=== PATIENT | female | born 1990 | race Caucasian/White ===

== ENCOUNTER 2023-03-08 12:35 | Emergency (ER) | payer MEDICAID, SELFPAY ==
[2023-03-08 12:40] VITALS: BP 159/89; PULSE 82; RESP 18; TEMP 37.1; O2SAT 98
--- NOTE | 2023-03-08 12:55 | CT_ITS ---
The [address] [address] Patient Name: MAREK PERKINS MRN: [id number] date: 1990 Sex: F Assigned Patient Location: ER Current Patient Location: ER Accession/Order Number: [id number] Exam Date: 03/08/2023 13:13 Report Date: 03/08/2023 13:36 At the request of: REGIS OCAMPO Procedure: CT head/brain wo con CT head/brain wo con: 03/08/2023 1:13 PM EDT CLINICAL HISTORY: 32 years old Female with right facial drooping. TECHNIQUE: CT head/brain wo con was performed without intravenous contrast administration. Axial CT images are obtained as well as sagittal and coronal reformations. Dose reduction techniques were achieved by using automated exposure control and/or adjustment of mA and/or kV according to patient size and/or use of iterative reconstruction technique. COMPARISON: None FINDINGS: The ventricles, gyri, sulcal patterns, and basal cisterns have a normal size and configuration for the patient's age. No intracranial hemorrhage or extra-axial fluid collection is identified. There is no evidence of focal mass or midline shift. The tong-white matter differentiation is preserved. The basal ganglia and thalami appear normal. The midbrain and cerebellum appear normal. The paranasal sinuses are normally aerated. Mastoid air cells are normally aerated. No appreciable scalp soft tissue swelling or depressed skull fractures are seen. CT/CT head/brain wo con IMPRESSION: No intracranial hemorrhage, mass effect or midline shift. Electronically authenticated by: WAYNE ALMAGUER Date: 03/08/2023 13:36
--- NOTE | 2023-03-08 12:55 | ED.NEUROSD1 ---
HPI - Neuro Symptoms/Deficit General Chief Complaint: Neuro Symptoms/Deficit Stated Complaint: NUMBNESS TO RIGHT SIDE OF FACE Time Seen by Provider: 03/08/23 12:39 Source: patient Mode of arrival: walk-in History of Present Illness HPI Narrative: patient presents with right-sided facial weakness. She notes onset of symptoms yesterday. She has not had any trauma or injury. She was told that she had a viral upper Ruster infection approximately ten days ago. She does not have any diplopia or dysarthria or dysphasia. Does not have a severe headache does not have any neck pain. She's not had any manipulation of her neck recently. She is nota weakness tingling or movement disorder of her upper or lower extremities. Her speech spank clear. She's not had a cognition defect. She is otherwise not on any new medication. Related Data Home Medications Medication Instructions Recorded Confirmed furosemide 40 mg tablet 40 mg PO DAILY 03/08/23 03/08/23 levothyroxine 112 mcg tablet 112 mcg PO 03/08/23 Allergies Allergy/AdvReac Type Severity Reaction Status Date / Time No Known Drug Allergies Allergy Verified 03/08/23 12:40 Exam Narrative Exam Narrative: awake alert vital signs are normal noted. She is oriented ?3 GCS is fifteen excellent historian. Constitutional skin is warm and dry mucous membranes are moist and pink. Examination the eye shows her extraocular muscles to be normal. There is no nystagmus. Pupillary light response is normal. Examination craniofacial structures showed no bruises contusions or injury. There is no vesicles or viral lesions noted in the facial or ocular/ear area. She has weakness to closure of the eyelid on the right side but it's not complete. She also has facial nerve weakness on the right side involving the forehead and the midface is well. Neurological examination shows motor strength in the upper and lower limbs be normal. Finger to normal finger to nose examination is normal. Speech is normal cognition normal. Constitutional Vital Signs, click to edit/add: Last Vital Signs Temp 98.7 F 03/08/23 12:40 Pulse 82 03/08/23 12:40 Resp 18 03/08/23 12:40 BP 159/89 H 03/08/23 12:40 Pulse Ox 98 03/08/23 12:40 O2 Del Method Room Air 03/08/23 12:40 Course Vital Signs Vital signs: Vital Signs Temperature 98.7 F 03/08/23 12:40 Pulse Rate 82 03/08/23 12:40 Respiratory Rate 18 03/08/23 12:40 Blood Pressure 159/89 H 03/08/23 12:40 Pulse Oximetry 98 03/08/23 12:40 Oxygen Delivery Method Room Air 03/08/23 12:40 Temperature 98.7 F 03/08/23 12:40 Pulse Rate 82 03/08/23 12:40 Respiratory Rate 18 03/08/23 12:40 Blood Pressure 159/89 H 03/08/23 12:40 Pulse Oximetry 98 03/08/23 12:40 Oxygen Delivery Method Room Air 03/08/23 12:40 MDM - Neuro Symptoms/Deficit MDM Narrative Medical decision making narrative: patient's clinical history and exam suggest Ling's palsy. CT scan was read by the radiologist as no acute process. I will start her on a steroid course. She was told to patch her eye closed at home at nighttime. She should follow up with primary care doctor to get referral and a repeat evaluation early next week Discharge Plan Discharge Chief Complaint: Neuro Symptoms/Deficit Clinical Impression: Ling's palsy Patient Disposition: Home, Self-Care Time of Disposition Decision: 13:42 Prescriptions / Home Meds: No Action levothyroxine 112 mcg tablet 112 mcg PO furosemide 40 mg tablet 40 mg PO DAILY Additional Instructions: prednisone/follow-up primary care doctor for referral early next week Stand Alone Forms: Portal Instructions Referrals: Physician,Non-Staff, MD [Primary Care Provider] - 1 week
[2023-03-08 13:54] VITALS: BP 136/87; PULSE 88; RESP 18; O2SAT 98
== END 2023-03-08 13:56 | disposition home or self-care (01) ==
PROVIDERS: Emergency Provider Emergency Medicine Emergency Medical Services
DX: G51.0 Bell's palsy (principal); Z79.899 Other long term (current) drug therapy; Z79.890 Hormone replacement therapy
CPT/HCPCS: 70450; 99284

== ENCOUNTER 2023-10-27 15:24 | Emergency (ER) | payer MEDICAID, SELFPAY ==
[2023-10-27 15:27] VITALS: BP 147/95; PULSE 76; TEMP 36.6; O2SAT 100; BMI 50.8
--- NOTE | 2023-10-27 15:40 | ED.GENADUL1 ---
HPI HPI - General Adult General Chief complaint: Skin/Abscess/Foreign Body Stated complaint: ALLERGIC REACTION Time Seen by Provider: 10/27/23 15:26 Source: patient Mode of arrival: walk-in History of Present Illness HPI narrative: Bell is a 33-year-old female who presents to the emergency department for a rash for the last week to the bilateral forearms, right leg. She states she believes she has poison blade. She has been using calamine which has improved the itching but the rash seems to have gotten worse. No fevers or other upper respiratory symptoms. No sick contacts. Related Data Home Medications ?Medication ?Instructions ?Recorded ?Confirmed furosemide 40 mg tablet 40 mg PO DAILY 03/08/23 03/08/23 levothyroxine 112 mcg tablet 112 mcg PO 03/08/23 Previous Rx's ?Medication ?Instructions ?Recorded hydroxyzine HCl 25 mg tablet 25 mg PO Q6H PRN itching #20 tabs 10/27/23 prednisone 20 mg tablet See Rx Instructions .Route 10/27/23 .COMPLEX #12 tabs Allergies Allergy/AdvReac Type Severity Reaction Status Date / Time No Known Drug Allergies Allergy Verified 03/08/23 12:40 Opioid HPI Opioid Management Most Recent Opioid Data: No Data to Display Review of Systems ROS Constitutional Denies: fever or chills Ears, nose, mouth, and throat Denies: throat pain or nasal congestion Respiratory Denies: shortness of breath Gastrointestinal Denies: nausea or vomiting Integumentary/Breast Reports: rash and itching Hematologic/Lymphatic Denies: easy bruising or easy bleeding Allergic/Immunologic Denies: hives Exam Narrative Exam Narrative: Gen.: Awake, alert, in no distress Head: Normocephalic, atraumatic ENT: Moist mucous membranes Respiratory: No respiratory distress Extremities: Moves extremities equally Psych: Normal mood and affect Neuro: No focal neuro deficit Skin: Warm, dry, intact; Erythematous linear vesicular rash over the bilateral volar forearms with fluid-filled vesicles, occasional crusting. Minimal rash to the right lateral thigh. No petechia or purpura. No pustules, red streaking or evidence of secondary cellulitis. No extension of the rash to the mucous membranes, palms of the hands. Constitutional Vital Signs, click to edit/add: Last Vital Signs Temp 97.9 F 06/02/24 15:27 Pulse 76 10/27/23 15:27 Resp 16 10/27/23 15:27 BP 147/95 H 10/27/23 15:27 Pulse Ox 100 10/27/23 15:27 O2 Del Method Room Air 10/27/23 15:27 Course Vital Signs Vital signs: Vital Signs Temperature 97.9 F 10/27/23 15:27 Pulse Rate 76 10/27/23 15:27 Respiratory Rate 16 10/27/23 15:27 Blood Pressure 147/95 H 10/27/23 15:27 Pulse Oximetry 100 10/27/23 15:27 Oxygen Delivery Method Room Air 10/27/23 15:27 Temperature 97.9 F 10/27/23 15:27 Pulse Rate 76 10/27/23 15:27 Respiratory Rate 16 10/27/23 15:27 Blood Pressure 147/95 H 10/27/23 15:27 Pulse Oximetry 100 10/27/23 15:27 Oxygen Delivery Method Room Air 10/27/23 15:27 Medical Decision Making MDM Narrative Medical decision making narrative: Exam is consistent with contact dermatitis. Patient placed on a prednisone taper and Atarax for itching. Work note provided. Follow-up PCP and return to the ER if symptoms change or worsen Medical Records Medical records reviewed: Yes I reviewed the patient's medical records Discharge Plan Discharge Stand Alone Forms: Portal Instructions Chief Complaint: Skin/Abscess/Foreign Body Clinical Impression: Contact dermatitis Patient Disposition: Home, Self-Care Time of Disposition Decision: 15:38 Condition: Good Prescriptions / Home Meds: New prednisone 20 mg tablet See Rx Instructions .ROUTE .COMPLEX Qty: 12 0RF Rx Instructions: 3 tabs daily for 2 days, then 2 tabs daily for 2 days, then 1 tab daily for 2 days hydroxyzine HCl 25 mg tablet 25 mg PO Q6H PRN (Reason: itching) Qty: 20 0RF No Action levothyroxine 112 mcg tablet 112 mcg PO furosemide 40 mg tablet 40 mg PO DAILY Print Language: Greenlandic Instructions: Contact Dermatitis (ED) Referrals: Physician,Non-Staff, MD [Primary Care Provider] - 1 week
== END 2023-10-27 16:00 | disposition home or self-care (01) ==
PROVIDERS: Emergency Provider Emergency Medicine
DX: L25.9 Unspecified contact dermatitis, unspecified cause (principal)
CPT/HCPCS: 99283

== ENCOUNTER 2024-02-10 17:18 | Emergency (ER) | payer MEDICAID, SELFPAY ==
[2024-02-10 17:26] VITALS: BP 121/72; PULSE 78; TEMP 36.9; O2SAT 99; BMI 55.6
--- NOTE | 2024-02-10 17:35 | XR_ITS ---
The [address] [address] Patient Name: MAREK PERKINS MRN: [id number] date: 1990 Sex: F Assigned Patient Location: ER Current Patient Location: ER Accession/Order Number: [id number] Exam Date: 02/10/2024 18:34 Report Date: 02/10/2024 19:56 At the request of: KIMBERLY BOYLE Procedure: XR knee LT 4V EXAM: XR knee LT 4V , 02/10/2024 HISTORY: left knee pain COMPARISON: None. TECHNIQUE: X-rays of the left knee, 4 views. FINDINGS: Mild degenerative changes are seen in the left knee. Mild soft tissue swelling. No fracture or dislocation. The bones are well-mineralized. XR/XR knee LT 4V IMPRESSION: Mild degenerative changes left knee. Electronically authenticated by: SUZANNE CATHERINE Date: 02/10/2024 19:56
--- NOTE | 2024-02-10 17:36 | ED.LOWEXI1 ---
HPI HPI - Extremity Injury (Lower) General Chief Complaint: Extremity Injury, Lower Stated Complaint: Extremity Injury, Lower Time Seen by Provider: 02/10/24 17:34 Source: patient Mode of arrival: walk-in Limitations: no limitations History of Present Illness HPI Narrative: Patient is a 33-year-old female who presents to the emergency department for the evaluation of left knee pain. She states she has a history of knee pain from riding horses over the past few years, but she has never had pain like this. She reports most of her pain in the anterior and lateral left knee. No falls or injuries. She states she feels as though there is fluid in her knee. No medications taken prior to arrival. She is not anticoagulated, she has no history of diabetes, she has never seen an orthopedist, she has no concern for . Related Data Home Medications ?Medication ?Instructions ?Recorded ?Confirmed furosemide 40 mg tablet 40 mg PO DAILY 03/08/23 03/08/23 levothyroxine 112 mcg tablet 112 mcg PO 03/08/23 Previous Rx's ?Medication ?Instructions ?Recorded hydroxyzine HCl 25 mg tablet 25 mg PO Q6H PRN itching #20 tabs 10/27/23 prednisone 20 mg tablet See Rx Instructions .Route 10/27/23 .COMPLEX #12 tabs ketorolac 10 mg tablet 10 mg PO TID PRN pain #10 tabs 02/10/24 methocarbamol 750 mg tablet 750 mg PO TID PRN pain #20 tabs 02/10/24 prednisone 20 mg tablet 60 mg (3 x 20 mg) PO DAILY 3 days 02/10/24 #9 tabs Allergies Allergy/AdvReac Type Severity Reaction Status Date / Time No Known Drug Allergies Allergy Verified 02/10/24 17:26 Opioid HPI Opioid Management Most Recent Pain and Opioid Data: No Data to Display Review of Systems ROS Constitutional Denies: fever or chills Ears, nose, mouth, and throat Denies: throat pain or nasal congestion Respiratory Denies: shortness of breath Gastrointestinal Denies: nausea or vomiting Musculoskeletal Reports: extremity pain, extremity swelling, joint pain and limited range of motion; Denies: back pain or neck pain Neurological Denies: numbness in extremities or weakness in extremities Hematologic/Lymphatic Denies: easy bruising or easy bleeding PFSH PFSH Social History Little interest or pleasure in doing things: not at all Feeling down, depressed, or hopeless: not at all Exam Narrative Exam Narrative: Gen.: Awake, alert, in no distress Head: Normocephalic, atraumatic ENT: Moist mucous membranes Respiratory: No respiratory distress Extremities: Moves extremities equally, no laxity of the patella, no palpable joint effusion, no bony point tenderness of the anterior knee. No posterior knee or calf tenderness. Normal dorsiflexion plantarflexion of the left foot. Psych: Normal mood and affect Neuro: No focal neuro deficit Skin: Warm, dry, intact Constitutional Vital Signs, click to edit/add: Last Vital Signs Temp 98.5 F 02/10/24 17:26 Pulse 78 02/10/24 17:26 Resp 20 02/10/24 17:26 BP 121/72 02/10/24 17:26 Pulse Ox 99 02/10/24 17:26 O2 Del Method Room Air 02/10/24 17:26 Course Vital Signs Vital signs: Vital Signs Temperature 98.5 F 02/10/24 17:26 Pulse Rate 78 02/10/24 17:26 Respiratory Rate 20 02/10/24 17:26 Blood Pressure 121/72 02/10/24 17:26 Pulse Oximetry 99 02/10/24 17:26 Oxygen Delivery Method Room Air 02/10/24 17:26 Temperature 98.5 F 02/10/24 17:26 Pulse Rate 78 02/10/24 17:26 Respiratory Rate 20 02/10/24 17:26 Blood Pressure 121/72 02/10/24 17:26 Pulse Oximetry 99 02/10/24 17:26 Oxygen Delivery Method Room Air 02/10/24 17:26 MDM - Extremity Injury (Lower) MDM Narrative Medical decision making narrative: X-rays reviewed by the radiologist, mild degenerative changes with no acute process. Patient placed in an Rafiq wrap and remains neurovascularly intact. She is started on NSAIDs and a steroid taper with muscle relaxant for home. She was given an orthopedic appointment. Rest, ice, elevate. Return to the ER if symptoms change or worsen. SUPERVISED APC VISIT, PHYSICIAN ATTESTATION: Based on the medical record the care appears appropriate. ? Medical Records Attestation: I reviewed the patient's medical records. Imaging Data Xr knee: Attestation: I have reviewed the pertinent imaging results. Radiologist's impression: ITS Impressions Knee X-Ray 02/10/24 17:35 IMPRESSION: Mild degenerative changes left knee. Electronically authenticated by: SUZANNE CATHERINE Date: 02/10/2024 19:56 Discharge Plan Discharge Chief Complaint: Extremity Injury, Lower Clinical Impression: Left knee pain Patient Disposition: Home, Self-Care Time of Disposition Decision: 20:01 Condition: Good Mode of Transportation: Private Vehicle Prescriptions / Home Meds: New prednisone 20 mg tablet 60 mg PO DAILY 3 Days Qty: 9 0RF ketorolac 10 mg tablet 10 mg PO TID PRN (Reason: pain) Qty: 10 0RF methocarbamol 750 mg tablet 750 mg PO TID PRN (Reason: pain) Qty: 20 0RF No Action levothyroxine 112 mcg tablet 112 mcg PO furosemide 40 mg tablet 40 mg PO DAILY prednisone 20 mg tablet See Rx Instructions .ROUTE .COMPLEX Qty: 12 0RF Rx Instructions: 3 tabs daily for 2 days, then 2 tabs daily for 2 days, then 1 tab daily for 2 days hydroxyzine HCl 25 mg tablet 25 mg PO Q6H PRN (Reason: itching) Qty: 20 0RF Print Language: [place] Island[place] Instructions: Knee Pain (ED) Referrals: [facility] [Primary Care Provider] - 1 week Emery Talavera MD [Physician] - 02/17/24 11:30 am Discharge Date/Time: 02/10/24 20:08
[2024-02-10] MEDS: METHYLPREDNISOLONE SOD SUCC PF 125 MG/2 ML VIAL IM (18:56)
[2024-02-10] MEDS: KETOROLAC TROMETHAMINE 60 MG/2 ML VIAL IM (18:57)
[2024-02-10 20:08] VITALS: BP 125/75; PULSE 70; O2SAT 99
== END 2024-02-10 20:08 | disposition home or self-care (01) ==
PROVIDERS: Emergency Provider Emergency Medicine
DX: M25.562 Pain in left knee (principal)
CPT/HCPCS: 73564; 96372; 99284; J1885; J2919

== ENCOUNTER 2024-08-02 00:22 | Emergency (ER) | payer MEDICAID, SELFPAY ==
[2024-08-02 00:27] VITALS: BP 152/94; PULSE 100; TEMP 37.5; O2SAT 94; BMI 53.3
--- OUTSIDE RECORDS SUMMARY | 2024-08-02 00:33 | XMS_ITS | CCD ---
Author Organization [facility] Care Team Providers Care Incident Response Lead Name Role Phone Unavailable Primary Care Provider UnavailFARA Salgado Attending Unavailable Kecia Oliver Unavailable LEON, DR CRESCENCIO Hernandez Primary Care Unavailable DONNA CRAFT Admitting Unavailable DONNA CRAFT Attending Unavailable JAMMIE BOYLE Consulting Unavailable BRUNA CAMPBELL Consulting Unavailable RAUL SHARIF Consulting Unavailable LEON, DR CRESCENCIO Hernandez Admitting Unavailable LEON, DR CRESCENCIO Hernandez Attending Unavailable LEON, DR CRESCENCIO Hernandez Primary Care Unavailable LEON, DR CRESCENCIO Hernandez Admitting Unavailable LEON, DR CRESCENCIO Hernandez Attending Unavailable LEON, DR CRESCENCIO Hernandez Primary Care Unavailable LEON, DR CRESCENCIO Hernandez Consulting Unavailable Medications Current Medications Medication Drug Class(es) Dates Sig (Normalized) Sig (Original) cephalexin 500 mg oral capsule (3 sources) Cephalosporin Antibacterial Start: 10-30-2021 End: 11-09-2021 take 1 capsule by mouth three times daily cephALEXin (KEFLEX) 500 MG capsule Take 1 capsule by mouth 3 times daily for 10 days 30 capsule 0 10/30/2021 11/09/2021 Active Cephalexin Activ e Furosemide (3 sources) Loop Diuretic Lasix Active take 1 tablet by mouth once thania y furosemide (LASIX) 40 MG tablet Take 40 mg by mouth daily 0 Active levothyroxine (3 sources) l-Thyroxine Levothyroxine So dium Active take 1 tablet by mouth once thania y levothyroxine (SYNTHROID) 112 MCG tablet Take 112 mcg by mouth Daily 0 Active naproxen 250 mg oral tablet (1 source) Nonsteroidal Anti-inflammatory Drug take 1 tablet by mouth twice daily at mealtime naproxen (NAPROSYN) 250 MG tablet Take 250 mg by mouth 2 times daily (with meals) 0 Active sulfamethoxazole 800 mg / trimethoprim 160 mg oral tablet (3 sources) Dihydrofolate Reductase Inhibitor Antibacterial, Sulfonamide Antimicrobial Start: End: take 1 tablet by mouth twice daily sulfamethoxazole -trimethoprim (BACTRIM DS) 800-160 MG per tablet Take 1 tablet by mouth 2 times daily for 10 days 20 tablet 0 10/30/2021 11/09/2021 Active Start: 10-30-2021 End: 10-30-2021 sulfamethoxazole-trimethopri m (BACTRIM DS;SEPTRA DS) 800-160 MG per tablet 1 tablet Bactrim Active Tri-Sprintec (1 source) Tri-Sprintec Act pippa Problems Active Problems Problem Classification Problem Date Documented Da te Episodic/Chronic Other nutritional; endocrine; and metabolic disorders (1 source) Obesity, unspecified; Translations: [OBESITY UNSPECIFIED] Onset: 02-21-2022 Chronic Other nutritional; endocrine; and metabolic disorders (1 source) Body mass index (BMI) 50.0-59.9, adult; Translations: [BODY MASS INDEX BMI 50.0-59.9 ADULT] Onset: 02-21-2022 Chronic Residual codes; unclassified (4 sources) Obstructive sleep apnea (adult) (pediatric); Translations: [OBSTRUCTIVE SLEEP APNEA] Onset: 09-13-2021 Chronic Unclassified (1 source) CONTACT W/AND (SUSP) EXPOS COVID-19; Translations: [CONTACT W/AND (SUSP) EXPOS COVID-19] Onset: 02-21-2022 Past or Other Problems Problem Classification Problem Date Documented Da te Episodic/Chronic Abdominal pain (4 sources) Unspecified abdominal pain; Translations: [UNSPECIFIED ABDOMINAL PAIN] Onset: 02-18-2022 Episodic Appendicitis and other appendiceal conditions (1 source) Unspecified acute appendicitis; Translations: [UNSPECIFIED ACUTE APPENDICITIS] Onset: 02-21-2022 Episodic Other connective tissue disease (1 source) Lateral epicondylitis, right elbow Onset: 01-25-2022 Resolved: 01-25-2022 Episodic Skin and subcutaneous tissue infections (2 sources) Cellulitis; Translations: [Cellulitis, unspecified] Onset: 11-01-2021 Resolved: 11-01-2021 Episodic Results Test Name Value Interpretation Reference Range Facility CBC AUTO DIFFon 06-09-2022 BASO # 0.0 103/ul Normal 0.0-0.1 [facility] Comment on above: Performed By: #### C BC ####[facility] [address] [place] [id number]. Nathalie Marroquin Basophils/100 WBC (Bld) 0.4 % Normal 0.2-2.0 [facility] Comment on above: Performed By: #### C BC ####[facility] [address] [place] [id number]. Nathalie Marroquin EO # 0.1 103/ul Normal 0.0-0.7 [facility] Comment on above: Performed By: #### C BC ####[facility] [address] [place] [id number]. Nathalie Marroquin Eosinophils/100 WBC (Bld) 1.9 % Normal 0.9-7.0 [facility] Comment on above: Performed By: #### C BC ####[facility] [address] [place], [place] [address]Dr. Nathalie Marroquin Erythrocyte distribution width (RBC) [Ratio] 14.2 % Normal 11.0-15.0 [facility] Comment on above: Performed By: #### C BC ####[facility] [address] [place], [place] [id number]. Nathalie Marroquin Hematocrit (Bld) [Volume fraction] 38.2 % Normal 36.0-48.0 [facility] Comment on above: Performed By: #### C BC ####[facility] [address] [place], [place] [id number]. Nathalie Marroquin Hemoglobin (Bld) [Mass/Vol] 13.2 g/dL Normal 12.0-16.0 [facility] Comment on above: Performed By: #### C BC ####[facility] [address] [place], [place] [id number]. Nathalie Marroquin IG # 0.02 10e3/ul Normal 0.00-0.03 [facility] Comment on above: Performed By: #### C BC ####[facility] [address] [place], [place] [address]Dr. Nathalie Marroquin IG % 0.4 % Normal 0.0-0.5 [facility] Comment on above: Performed By: #### C BC ####[facility] [address] [place] [id number]. Nathalie Marroquin LYMPH # 1.2 103/ul Normal 1.2-3.8 [facility] Comment on above: Performed By: #### C BC ####[facility] [address] [place] [id number]. Nathalie Marroquin Lymphocytes/100 WBC (Bld) 25.4 % Normal 20.5-60.0 [facility] Comment on above: Performed By: #### C BC ####[facility] [address] [place] [id number]. Nathalie Marroquin MANUAL DIFF REQ NO Normal [facility] Comment on above: Performed By: #### C BC ####[facility] [address] [place] [id number]. Nathalie Marroquin MCH (RBC) [Entitic mass] 30.1 pg Normal 26.7-34.0 [facility] Comment on above: Performed By: #### C BC ####[facility] [address] [place] [id number]. Nathalie Marroquin MCHC (RBC) [Mass/Vol] 34.6 g/dL Normal 29.9-35.2 [facility] Comment on above: Performed By: #### C BC ####[facility] [address] [place] [id number]. Nathalie Marroquin MCV (RBC) [Entitic vol] 87.2 fL Normal 81.0-99.0 [facility] Comment on above: Performed By: #### C BC ####[facility] [address] [place] [id number]. Nathalie Marroquin MONO # 0.3 103/ul Normal 0.3-0.8 [facility] Comment on above: Performed By: #### C BC ####[facility] [address] [place] [id number]. Nathalie Marroquin Monocytes/100 WBC (Bld) 5.8 % Normal 1.7-12.0 [facility] Comment on above: Performed By: #### C BC ####[facility] [address] [place] [id number]. Nathalie Marroquin NEUT # 3.2 103/ul Normal 1.4-6.5 [facility] Comment on above: Performed By: #### C BC ####[facility] [address] [place] [id number]. Nathalie Marroquin Neutrophils/100 WBC (Bld) 66.1 % Normal 43.0-75.0 [facility] Comment on above: Performed By: #### C BC ####[facility] [address] [place] [id number]. Nathalie Marroquin Platelet mean volume (Bld) [Entitic vol] 9.1 fL Critically low 9.5-13.5 [facility] Comment on above: Performed By: #### C BC ####[facility] [address] [place] [address]Dr. Nathalie Marroquin PLT 276 103/ul Normal 150-450 [facility] Comment on above: Performed By: #### C BC ####[facility] [address] [place], [place] [id number]. Nathalie Marroquin RBC 4.38 106/ul Normal 4.20-5.40 [facility] Comment on above: Performed By: #### C BC ####[facility] [address] [place] [id number]. Nathalie Marroquin WBC 4.9 103/ul Normal 4.0-11.0 [facility] Comment on above: Performed By: #### C BC ####[facility] [address] [place] [id number]. Nathalie Marroquin FREE T3on 06-09-2022 FREE T3 2.01 pg/mlL Critically low 2.18-3.98 [facility] Comment on above: Performed By: #### F T3, TSH, LIPID, BMP, LIVER ####[facility] [address] [place] [id number]. Nathalie Marroquin FREE T4on 06-09-2022 Free T4 [Mass/Vol] 0.66 ng/dL Critically low 0.76-1.46 [facility] Comment on above: Performed By: #### F T4 #### [facility] [id number] Nathalie Marroquin GLYCOHEMOGLOBIN A1Con 2022 ADA RECOMMENDATION SEE BELOW Normal [facility] Comment on above: Result Comment: ADA RECOMMENDED LIMIT 4.0 - 6.0 ADA THERAPEUTIC TARGET < 7.0 ACTION SUGGESTED > 7.0 Performed By: #### A 1C #### [facility] [address] [address] [address] Nathalie Marroquin Glucose [Mass/Vol] 171 mg/dL Normal [facility] Comment on above: Performed By: #### A 1C #### [facility] [address] [address] [address] Nathalie Marroquin HbA1c (Bld) [Mass fraction] 7.6 % Critically high 4.5-6.2 [facility] Comment on above: Performed By: #### A 1C #### [facility] [id number] Nathalie Marroquin LIPID PROFILEon 06-09-2022 CHOL-HDL RATIO NORM SEE BELOW Normal [facility] Comment on above: Result Comment: 3.3 - 4.4 LOW RISK 4.4 - 7.1 AVERAGE RISK 7.1 - 11.0 MODERATE RISK >11.0 HIGH RISK Performed By: #### F T3, TSH, LIPID, BMP, LIVER ####[facility] [address] [place], [place] [address]Dr. Nathalie Marroquin Cholesterol [Mass/Vol] 163 mg/dL Normal <=200 [facility] Comment on above: Performed By: #### F T3, TSH, LIPID, BMP, LIVER ####[facility] [address] [place] [id number]. Nathalie Marroquin Cholesterol in HDL [Mass/Vol] 42 mg/dL Normal 40-60 [facility] Comment on above: Performed By: #### F T3, TSH, LIPID, BMP, LIVER ####[facility] [address] [place] [phone]. Nathalie Marroquin Cholesterol in LDL [Mass/Vol] 98.2 mg/dL Normal [facility] Comment on above: Performed By: #### F T3, TSH, LIPID, BMP, LIVER ####[facility] [address] [place] [address]Dr. Nathalie Marroquin Cholesterol.total/Cho lesterol in HDL [Mass ratio] 3.9 {ratio} Normal [facility] Comment on above: Performed By: #### F T3, TSH, LIPID, BMP, LIVER ####[facility] [address] [place] [address]Dr. Nathalie Marroquin HDL NORMAL > or = 60 mg/dl - LO W CARDIOVASCULAR RISK <40 mg/dl - HIGH CARDIOVASCULAR RISK Normal [facility] Comment on above: Performed By: #### F T3, TSH, LIPID, BMP, LIVER ####[facility] [address] [place] [address]Dr. Nathalie Marroquin LDL CALC NORMAL SEE BELOW Normal [facility] Comment on above: Result Comment: <100 mg/dl OPTIMAL 100 - 129 mg/dl NEAR OR ABOVE OPTIMAL 130 - 159 mg/dl BORDERLINE HIGH 160 - 189 mg/dl HIGH >190 mg/dl VERY HIGH Performed By: #### F T3, TSH, LIPID, BMP, LIVER ####[facility] [address] [place] [address]Dr. Nathalie Marroquin Triglyceride [Mass/Vol] 114 mg/dL Normal <=150 [facility] Comment on above: Performed By: #### F T3, TSH, LIPID, BMP, LIVER ####[facility] [address] [place] [id number]. Nathalie Marroquin VLDL CALC 22.8 mg/dL Normal [facility] Comment on above: Performed By: #### F T3, TSH, LIPID, BMP, LIVER ####[facility] [address] [place] [address]Dr. Britnibrett Marroquin LIVER PROFILEon 06-09-2022 Albumin [Mass/Vol] 3.3 g/dL Critically low 3.4-5.0 [facility] Comment on above: Performed By: #### F T3, TSH, LIPID, BMP, LIVER ####[facility] [address] [place] [address]Dr. Nathalie Marroquin Albumin/Globulin [Mass ratio] 0.7 {ratio} Normal [facility] Comment on above: Performed By: #### F T3, TSH, LIPID, BMP, LIVER ####[facility] [address] [place] [address]Dr. Nathalie Marroquin ALP [Catalytic activity/Vol] 113 U/L Normal 46-116 [facility] Comment on above: Performed By: #### F T3, TSH, LIPID, BMP, LIVER ####[facility] [address] [place], [place] [address]Dr. Britnibrett Marroquin ALT [Catalytic activity/Vol] 45 U/L Normal 14-59 [facility] Comment on above: Performed By: #### F T3, TSH, LIPID, BMP, LIVER ####[facility] [address] [place], [place] [address]Dr. Nathalie Marroquin AST [Catalytic activity/Vol] 26 U/L Normal 15-37 [facility] Comment on above: Performed By: #### F T3, TSH, LIPID, BMP, LIVER ####[facility] [address] [place], [place] [address]Dr. Nathalie Marroquin BILI, CONJUGATED 0.1 mg/dL Normal 0.0-0.2 [facility] Comment on above: Performed By: #### F T3, TSH, LIPID, BMP, LIVER ####[facility] [address] [place], [place] [address]Dr. Nathalie Marroquin Bilirubin [Mass/Vol] 0.4 mg/dL Normal 0.2-1.0 [facility] Comment on above: Performed By: #### F T3, TSH, LIPID, BMP, LIVER ####[facility] [address] [place], [place] [address]Dr. Nathalie Marroquin Globulin (S) [Mass/Vol] 4.8 g/dL Normal [facility] Comment on above: Performed By: #### F T3, TSH, LIPID, BMP, LIVER ####[facility] [address] [place], [place] [address]Dr. Nathalie Marroquin Protein [Mass/Vol] 8.1 g/dL Normal 6.4-8.2 [facility] Comment on above: Performed By: #### F T3, TSH, LIPID, BMP, LIVER ####[facility] [address] [place] [address]Dr. Nathalie Marrqouin PROF CHEM 8 (BAS METB)on Anion gap [Moles/Vol] 9.7 mmol/L Normal [facility] Comment on above: Performed By: #### F T3, TSH, LIPID, BMP, LIVER ####[facility] [address] [place] [address]Dr. Nathalie Marroquin Calcium [Mass/Vol] 8.5 mg/dL Normal 8.5-10.1 [facility] Comment on above: Performed By: #### F T3, TSH, LIPID, BMP, LIVER ####[facility] [address] [place] [address]Dr. Britnibrett Marroquin Chloride [Moles/Vol] 101 mmol/L Normal 98-107 [facility] Comment on above: Performed By: #### F T3, TSH, LIPID, BMP, LIVER ####[facility] [address] [place] [address]Dr. Nathalie Marroquin CO2 [Moles/Vol] 30.2 mmol/L Normal 21.0-32.0 [facility] Comment on above: Performed By: #### F T3, TSH, LIPID, BMP, LIVER ####[facility] [address] [place] [address]Dr. Nathalie Marroquin Creatinine [Mass/Vol] 0.82 mg/dL Normal 0.55-1.02 [facility] Comment on above: Performed By: #### F T3, TSH, LIPID, BMP, LIVER ####[facility] [address] [place] [address]Dr. Nathalie Lopez EGFR-AF LITHUANIAN >60 Normal >=60 [facility] Comment on above: Performed By: #### F T3, TSH, LIPID, BMP, LIVER ####[facility] [address] [place] [address]Dr. Nathalie Marroquin EGFR-NON AF LITHUANIAN >60 Normal >=60 [facility] Comment on above: Performed By: #### F T3, TSH, LIPID, BMP, LIVER ####[facility] [address] [place] [address]Dr. Nathalie Marroquin Glucose [Mass/Vol] 151 mg/dL Critically high 74-106 T [facility] Comment on above: Performed By: #### F T3, TSH, LIPID, BMP, LIVER ####[facility] [address] [place] [address]Dr. Nathalie Marroquin Potassium [Moles/Vol] 3.9 mmol/L Normal 3.5-5.1 [facility] Comment on above: Performed By: #### F T3, TSH, LIPID, BMP, LIVER ####[facility] [address] [place] [address]Dr. Nathalie Marroquin Sodium [Moles/Vol] 137 mmol/L Normal 136-145 [facility] Comment on above: Performed By: #### F T3, TSH, LIPID, BMP, LIVER ####[facility] [address] [place] [address]Dr. Nathalie Marroquin Urea nitrogen [Mass/Vol] 17.0 mg/dL Normal 7.0-18.0 [facility] Comment on above: Performed By: #### F T3, TSH, LIPID, BMP, LIVER ####[facility] [address] [place] [address]Dr. Nathalie Marroquin Urea nitrogen/Creatinine [Mass ratio] 20.7 mg/mg Normal [facility] Comment on above: Performed By: #### F T3, TSH, LIPID, BMP, LIVER ####[facility] [address] [place] [address]Dr. Nathalie Marroquin TSHon 06-09-2022 TSH 8.979 uIU/mL Critically high 0.358-3.740 [facility] Comment on above: Performed By: #### F T3, TSH, LIPID, BMP, LIVER ####[facility] [address] [place] [address]Dr. Nathalie Marroquin CBC AUTO DIFFon 02-18-2022 BASO # 0.0 103/ul Normal 0.0-0.1 [facility] Comment on above: Performed By: #### C BC #### [facility] [address] [address] [address] Nathalie Marroquin Basophils/100 WBC (Bld) 0.3 % Normal 0.2-2.0 [facility] Comment on above: Performed By: #### C BC #### [facility] [address] [address] [address] Nathalie Marroquin EO # 0.2 103/ul Normal 0.0-0.7 [facility] Comment on above: Performed By: #### C BC #### [facility] [address] [place] [address] Dr. Nathalie Marroquin Eosinophils/100 WBC (Bld) 2.3 % Normal 0.9-7.0 [facility] Comment on above: Performed By: #### C BC #### [facility] [address] [place] [address] Dr. Nathalie Marroquin Erythrocyte distribution width (RBC) [Ratio] 14.6 % Normal 11.0-15.0 [facility] Comment on above: Performed By: #### C BC #### [facility] [address] [place] [address] Dr. Nathalie Marroquin Hematocrit (Bld) [Volume fraction] 38.8 % Normal 36.0-48.0 [facility] Comment on above: Performed By: #### C BC #### [facility] [address] [place] [address] Dr. Nathalie Marroquin Hemoglobin (Bld) [Mass/Vol] 12.7 g/dL Normal 12.0-16.0 [facility] Comment on above: Performed By: #### C BC #### [facility] [address] [place] [address] Dr. Nathalie Marroquin IG # 0.04 10e3/ul Critically high 0.00-0.03 [facility] Comment on above: Performed By: #### C BC #### [facility] [address] [place] [address] Dr. Nathalie Marroquin IG % 0.5 % Normal 0.0-0.5 [facility] Comment on above: Performed By: #### C BC #### [facility] [address] [place] [address] Dr. Nathalie Marroquin LYMPH # 1.9 103/ul Normal 1.2-3.8 [facility] Comment on above: Performed By: #### C BC #### [facility] [address] [place] [address] Dr. Nathalie Marroquin Lymphocytes/100 WBC (Bld) 23.9 % Normal 20.5-60.0 [facility] Comment on above: Performed By: #### C BC #### [facility] [address] [place] [address] Dr. Nathalie Marroquin MANUAL DIFF REQ NO Normal [facility] Comment on above: Performed By: #### C BC #### [facility] [address] [place] [address] Dr. Nathalie Marroquin MCH (RBC) [Entitic mass] 29.6 pg Normal 26.7-34.0 [facility] Comment on above: Performed By: #### C BC #### [facility] [address] [place] [address] Dr. Nathalie Marroquin MCHC (RBC) [Mass/Vol] 32.7 g/dL Normal 29.9-35.2 [facility] Comment on above: Performed By: #### C BC #### [facility] [address] [place] [address] Dr. Nathalie Marroquin MCV (RBC) [Entitic vol] 90.4 fL Normal 81.0-99.0 [facility] Comment on above: Performed By: #### C BC #### [facility] [address] [place] [address] Dr. Nathalie Marroquin MONO # 0.5 103/ul Normal 0.3-0.8 [facility] Comment on above: Performed By: #### C BC #### [facility] [address] [place] [address] Dr. Nathalie Marroquin Monocytes/100 WBC (Bld) 6.5 % Normal 1.7-12.0 [facility] Comment on above: Performed By: #### C BC #### [facility] [address] [place] [address] Dr. Nahtalie Marroquin NEUT # 5.3 103/ul Normal 1.4-6.5 [facility] Comment on above: Performed By: #### C BC #### [facility] [address] [place] [address] Dr. Nathalie Marroquin Neutrophils/100 WBC (Bld) 66.5 % Normal 43.0-75.0 [facility] Comment on above: Performed By: #### C BC #### [facility] [address] [place] [address] Dr. Nathalie Marroquin Platelet mean volume (Bld) [Entitic vol] 9.5 fL Normal 9.5-13.5 [facility] Comment on above: Performed By: #### C BC #### [facility] [address] [place] [address] Dr. Nathalie Marroquin PLT 287 103/ul Normal 150-450 [facility] Comment on above: Performed By: #### C BC #### [facility] [address] [place] [address] Dr. Nathalie Marroquin RBC 4.29 106/ul Normal 4.20-5.40 [facility] Comment on above: Performed By: #### C BC #### [facility] [address] [place] [address] Dr. Nathalie Marroquin WBC 7.9 103/ul Normal 4.0-11.0 [facility] Comment on above: Performed By: #### C BC #### [facility] [address] [place] [address] ABD/PELV W CONon 02-19-[address] ABD/PELV W CON CT ABDOMEN/PELVIS WITH IV CONTRAST. INDICATION: GENERALIZED ABDOMINAL PAIN. COMPARISON: There are no other studies available for comparison. TECHNIQUE: Contiguous axial images were obtained from the lung bases to the pelvic floor following the intravenous administration of contrast. Coronal and sagittal reformations are provided. Approximately ML ml Omnipaque 350 was administered intravenously. FINDINGS: LOWER LUNGS: Clear. LIVER/BILIARY TREE: No mass. No intrahepatic ductal dilatation. Hepatic steatosis. Hepatomegaly. GALLBLADDER: No significant gallbladder wall thickening. No radiopaque stone. CBD: Normal CBD. SPLEEN: Normal in size. PANCREAS: No acute findings. No peripancreatic fluid or inflammation. No pancreatic duct dilatation. No discrete mass. ADRENALS: Normal. KIDNEYS: No hydronephrosis. No radiopaque calculus. STOMACH AND BOWEL: Stomach is unremarkable. No dilated bowel loops. No bowel wall thickening. Colonic diverticulosis. APPENDIX: The appendix measures up to 8 mm. There is mild periappendiceal stranding. No evidence of perforation or abscess. PERITONEAL CAVITY: There is mild stranding in minimal fluid in the right lower quadrant adjacent to the appendix.. ABDOMINAL WALL: No subcutaneous stranding. No subcutaneous fluid collection. LYMPH NODES: No mesenteric or retroperitoneal lymphadenopathy by CT criteria. ABDOMINAL AORTA: No aneurysm. PELVIS: No acute abnormality. MUSCULOSKELETAL: No acute osseous abnormality. IMPRESSION: Borderline thickened appendix with mild periappendiceal stranding and small amount of free fluid suspicious for acute uncomplicated appendicitis. Correlate clinically. Electronically authenticated by: RAUL SHARIF Date: 2022-02-18 20:02 Normal [facility]26 SARS-CoV-2 (COVID-19) RNA SANYA+probe Ql (Unsp spec) Not detected Normal NOT DETECTED [facility] Comment on above: Result Comment: When diagnostic testing is negative, the possibility of a false negative should be considered in the context of a patient's recent exposures and the presence of clinical signs and symptoms consistent with SARS-CoV-2. This test is not yet approved or cleared by the [place] FDA. When there are no FDA-approved or cleared tests available, and other criteria are met, FDA can make tests available under an emergency access mechanism called an Emergency Use Authorization (EUA). The EUA for this test is supported by the Jud of Health and Human Service's declaration that circumstances exist to justify the emergency use of in vitro diagnostics for the detection and/or diagnosis of the virus that causes COVID-19. This EUA will remain in effect for the duration of the COVID-19 declaration justifying emergency of IVDs, unless it is terminated or revoked by the FDA (after which the test may no longer be used). Performed By: #### C VDTBH #### [facility] [address] [address] [address] Nathalie Marroquin ER URINE PROFILEon 2 Bilirubin Ql (U) Negative Normal NEGATIVE [facility] Comment on above: Performed By: #### P REGU, UMICRO, ERUR #### [facility] [address] [address] [address] Natahlie Marroquin Clarity (U) CLEAR Normal CLEAR [facility] Comment on above: Performed By: #### P REGU, UMICRO, ERUR #### [facility] [address] [address] [address] Nathalie Marroquin Color (U) LT. YELLOW Normal YELLOW [facility] Comment on above: Performed By: #### P REGU, UMICRO, ERUR #### [facility] [address] [address] [address] Nathalie ARANAD A micrscopic examination will be performed if indicated. Normal [facility] Comment on above: Performed By: #### P REGU, UMICRO, ERUR #### [facility] [address] [address] [address] Nathalie Marroquin Glucose Ql (U) Negative Normal NEGATIVE [facility] Comment on above: Performed By: #### P REGU, UMICRO, ERUR #### [facility] [address] [address] [address] Nathalie Marroquin Hemoglobin Ql (U) Negative Normal NEGATIVE [facility] Comment on above: Performed By: #### P REGU, UMICRO, ERUR #### [facility] [address] [address] [address] Nathalie Marroquin Ketones Ql (U) Negative Normal NEGATIVE [facility] Comment on above: Performed By: #### P REGU, UMICRO, ERUR #### [facility] [address] [address] [address] Nathalie Marroquin LEUKOCYTES SMALL Abnormal NEGATIVE [facility] Comment on above: Performed By: #### P REGU, UMICRO, ERUR #### [facility] [address] [address] [address] Nathalie Marroquin Nitrite Ql (U) Negative Normal NEGATIVE [facility] Comment on above: Performed By: #### P REGU, UMICRO, ERUR #### [facility] [address] [address] [address] Nathalie Marroquin pH (U) 7.0 [pH] Normal 5-9 [facility] Comment on above: Performed By: #### P REGU, UMICRO, ERUR #### [facility] [address] [address] [address] Nathalie Marroquin SPEC GRAVITY 1.020 Normal 1.005-<=1.025 [facility] Comment on above: Performed By: #### P REGU UMICRO, ERUR #### [facility] [address] [address] [address] Nathalie Marroquin UA PROTEIN Negative Normal NEGATIVE/ TRACE [facility] Comment on above: Performed By: #### P REGJosi UMICRO, ERUR #### [facility] [address] [address] [address] Nathalie Marroquin UR MICRO IND INDICATED Normal [facility] Comment on above: Performed By: #### P REGU, UMICRO, ERUR #### [facility] [address] [address] [address] Nathalie Marroquin Urobilinogen Qn (U) 0.2 {Gianluca'U}/dL Normal 0.2 - 1. 0 [facility] Comment on above: Performed By: #### P REGU UMICRO, ERUR #### [facility] [address] [address] [address] Nathalie Marroquin LACTATE/LACTIC ACIDon 2021 Lactate [Moles/Vol] 1.3 mmol/L Normal 0.4-1.9 [facility] Comment on above: Performed By: #### L ACT ####[facility] [address] [address]. Nathalie Marroquin LIPASEon 02-18-2022 Lipase [Catalytic activity/Vol] 143.0 U/L Normal 73.0-393.0 [facility] Comment on above: Performed By: #### C MP, LIPA #### [facility] [address] [place] [address] Dr. Nathalie Marroquin URon 02-18-2022 , QUAL Negative Normal NEGATIVE [facility] Comment on above: Performed By: #### P REGUMARGARITARO, ERUR #### [facility] [address] [address] [address] Nathalie Marroquin PROF 14(COMP METB)on 022 Albumin [Mass/Vol] 3.1 g/dL Critically low 3.4-5.0 [facility] Comment on above: Performed By: #### C MP, LIPA #### [facility] [address] [place] [address] Dr. Nathalie Marroquin Albumin/Globulin [Mass ratio] 0.7 {ratio} Normal [facility] Comment on above: Performed By: #### C MP, LIPA #### [facility] [address] [place] [address] Dr. Nathalie Marroquin ALP [Catalytic activity/Vol] 95 U/L Normal 46-116 [facility] Comment on above: Performed By: #### C MP, LIPA #### [facility] [address] [place] [address] Dr. Nathalie Marroquin ALT [Catalytic activity/Vol] 46 U/L Normal 14-59 [facility] Comment on above: Performed By: #### C MP, LIPA #### [facility] [address] [place] [address] Dr. Nathalie Marroquin Anion gap [Moles/Vol] 9.7 mmol/L Normal [facility] Comment on above: Performed By: #### C MP, LIPA #### [facility] [address] [place] [address] Dr. Nathalie Marroquin AST [Catalytic activity/Vol] 22 U/L Normal 15-37 [facility] Comment on above: Performed By: #### C MP, LIPA #### [facility] [address] [address] [address] Nathalie Marroquin Bilirubin [Mass/Vol] 0.3 mg/dL Normal 0.2-1.0 [facility] Comment on above: Performed By: #### C MP, LIPA #### [facility] [address] [place] [address] Dr. Nathalie Marroquin Calcium [Mass/Vol] 8.8 mg/dL Normal 8.5-10.1 [facility] Comment on above: Performed By: #### C MP, LIPA #### [facility] [address] [place] [address] Dr. Nathalie Marroquin Chloride [Moles/Vol] 103 mmol/L Normal 98-107 [facility] Comment on above: Performed By: #### C MP, LIPA #### [facility] [address] [place] [address] Dr. Nathalie Marroquin CO2 [Moles/Vol] 28.4 mmol/L Normal 21.0-32.0 [facility] Comment on above: Performed By: #### C MP, LIPA #### [facility] [address] [place] [address] Dr. Nathalie Marroquin Creatinine [Mass/Vol] 0.88 mg/dL Normal 0.55-1.02 [facility] Comment on above: Performed By: #### C MP, LIPA #### [facility] [address] [place] [address] Dr. Nathalie Marroquin EGFR-AF LITHUANIAN >60 Normal >=60 [facility] Comment on above: Performed By: #### C MP, LIPA #### [facility] [address] [place] [address] Dr. Nathalie Marroquin EGFR-NON AF LITHUANIAN >60 Normal >=60 [facility] Comment on above: Performed By: #### C MP, LIPA #### [facility] [address] [place] [address] Dr. Nathalie Marroquin Globulin (S) [Mass/Vol] 4.5 g/dL Normal [facility] Comment on above: Performed By: #### C MP, LIPA #### [facility] [address] [address] [address] Nathalie Marroquin Glucose [Mass/Vol] 144 mg/dL Critically high 74-106 [facility] Comment on above: Performed By: #### C MP, LIPA #### [facility] [address] [address] [address] Nathalie Marroquin Potassium [Moles/Vol] 4.1 mmol/L Normal 3.5-5.1 [facility] Comment on above: Performed By: #### C MP, LIPA #### [facility] [address] [address] [address] Nathalie Marroquin Protein [Mass/Vol] 7.6 g/dL Normal 6.4-8.2 [facility] Comment on above: Performed By: #### C MP, LIPA #### [facility] [address] [place] [address] Dr. Nathalie Marroquin Sodium [Moles/Vol] 137 mmol/L Normal 136-145 [facility] Comment on above: Performed By: #### C MP, LIPA #### [facility] [address] [address] [address] Nathalie Marroquin Urea nitrogen [Mass/Vol] 13.0 mg/dL Normal 7.0-18.0 [facility] Comment on above: Performed By: #### C MP, LIPA #### [facility] [address] [address] [address] Nathalie Marroquin Urea nitrogen/Creatinine [Mass ratio] 14.8 mg/mg Normal [facility] Comment on above: Performed By: #### C MP, LIPA #### [facility] [address] [address] [address] Nathalie Marroquin URINE MICROSCOPIC ONLYon BACTERIA TRACE Abnormal NONE SEEN [facility] Comment on above: Performed By: #### P CARMEN TOLEDO, ERUR #### [facility] [address] [address] [address] Nathalie Marroquin Bacteria identified Cx Nom (U) NOT INDICATED Normal [facility] Comment on above: Performed By: #### P REGU, UMICRO, ERUR #### [facility] [address] [address] [address] Nathalie Marroquin CAST NONE SEEN Normal NONE SEEN [facility] Comment on above: Performed By: #### P REGU, UMICRO, ERUR #### [facility] [address] [address] [address] Nathalie Marroquin Crystals LM Nom (Urine sed) NONE SEEN Normal NONE SEEN [facility] Comment on above: Performed By: #### P REGU, UMICRO, ERUR #### [facility] [address] [address] [address] Nathalie Marroquin Epithelial cells LM Ql (Urine sed) FEW Abnormal NONE SEEN /RARE [facility] Comment on above: Performed By: #### P REGU, UMICRO, ERUR #### [facility] [address] [address] [address] Nathalie Marroquin MUCOUS TRACE Abnormal NONE SEEN [facility] Comment on above: Performed By: #### P REGU, UMICRO, ERUR #### [facility] [address] [address] [address] Nathalie Marroquin RBC NONE SEEN Abnormal 0-2 [facility] Comment on above: Performed By: #### P REGU, UMICRO, ERUR #### [facility] [address] [address] [address] Nathalie Marroquin WBC 0-2 Abnormal NONE SEEN [facility] Comment on above: Performed By: #### P REGU, UMICRO, ERUR #### [facility] [address] [address] [address] Nathalie Marroquin Basic Metabolic Profon 10-30 (cont.) Normal [facility] Comment on above: Result Comment: Aver age GFR for 30-39 years old: 107 mL/min/1.73sq m Chronic Kidney Disease: <60 mL/min/1.73sq m Kidney failure: <15 mL/min/1.73sq m eGFR calculated using average adult body mass. Additional eGFR calculator available at: http://www.mDialog.com/multiple_crcl_2012.htm Performed By: #### C DP, BMP #### [facility] [address] [place], [place] [id number] Hospice Care Consultant: Cory Merrill MD Anion gap [Moles/Vol] 14 mmol/L Normal 9-17 [facility] Comment on above: Performed By: #### C DP, BMP #### [facility] [address] [place], [place] [id number] Hospice Care Consultant: Cory Merrill MD BUN/CRE Ratio 19 Normal 9-20 [facility] Comment on above: Performed By: #### C DP, BMP #### [facility] [address] [place], [place] [id number] Hospice Care Consultant: Cory Merrill MD Calcium [Mass/Vol] 8.8 mg/dL Normal 8.6-10.4 [facility] Comment on above: Performed By: #### C DP, BMP #### [facility] [address] [place], [place] [id number] Hospice Care Consultant: Cory Merrill MD Chloride [Moles/Vol] 102 mmol/L Normal 98-107 [facility] Comment on above: Performed By: #### C DP, BMP #### [facility] [address] [place], [place] [id number] Hospice Care Consultant: Cory Merrill MD CO2 [Moles/Vol] 24 mmol/L Normal 20-31 [facility] Comment on above: Performed By: #### C DP, BMP #### [facility] [address] [place], [place] [id number] Hospice Care Consultant: Cory Merrill MD Creatinine [Mass/Vol] 0.78 mg/dL Normal 0.50-0.90 [facility] Comment on above: Performed By: #### C DP, BMP #### [facility] [address] [place], [place] [id number] Hospice Care Consultant: Cory Merrill MD GFR, Amer >60 Normal >60 [facility] Comment on above: Performed By: #### C DP, BMP #### [facility] [address] [place] [address] Hospice Care Consultant: Cory Merrill MD GFR,non Amer >60 Normal >60 [facility] Comment on above: Performed By: #### C DP, BMP #### [facility] [address] [place], [place] [id number] Hospice Care Consultant: Cory Merrill MD Glucose [Mass/Vol] 162 mg/dL High 70-99 [facility] Comment on above: Performed By: #### C DP, BMP #### [facility] [address] [place], [place] [id number] Hospice Care Consultant: Cory Merrill MD Potassium [Moles/Vol] 3.8 mmol/L Normal 3.7-5.3 [facility] Comment on above: Performed By: #### C DP, BMP #### [address] [place], [place] [address]83 Hospice Care Consultant: Cory Merrill MD Sodium [Moles/Vol] 140 mmol/L Normal 135-144 [facility] Comment on above: Performed By: #### C DP, BMP #### [facility] [address] [place], [place] [id number] Hospice Care Consultant: Cory Merrill MD Staging: Normal [facility] Comment on above: Result Comment: Stag e 1: Some kidney damage normal GFR Stage 2: Mild kidney damage GFR 60-89 Stage 3: Moderate kidney damage GFR 30-59 Stage 4: Severe kidney damage GFR 15-29 Stage 5: Severe kidney damage GFR <15 ESRD - chronic treatment by dialysis or transplant Performed By: #### C DP, BMP #### [facility] [address] [place] [address] Hospice Care Consultant: Cory Merrill MD Urea nitrogen [Mass/Vol] 15 mg/dL Normal 6-20 [facility] Comment on above: Performed By: #### C DP, BMP #### [address] [place], [place] [id number] Hospice Care Consultant: Cory Merrill MD CBC with Diffon 10-30-2021 Abs. Basophil <0.03 Normal 0.00-0.20 [facility] Comment on above: Performed By: #### C DP, BMP #### [address] [place], [place] [id number] Hospice Care Consultant: Cory Merrill MD Abs.Imm.Granulocyte 0.08 k/uL Normal 0.00-0.30 [facility] Comment on above: Performed By: #### C DP, BMP #### [address] [place], [place] [id number] Hospice Care Consultant: Cory Merrill MD Abs.Neutrophil (Seg) 5.91 k/uL Normal 1.50-8.10 [facility] Comment on above: Performed By: #### C DP, BMP #### [address] [place], [place] [id number] Hospice Care Consultant: Cory Merrill MD Basophils/100 WBC (Bld) 0 % Normal 0-2 [facility] Comment on above: Performed By: #### C DP, BMP #### [address] [place] [address] Hospice Care Consultant: Cory Merrill MD Eosinophils (Bld) [#/Vol] 0.13 10*3/uL Normal 0.00-0.44 [facility] Comment on above: Performed By: #### C DP, BMP #### [address] [place], [place] [id number] Hospice Care Consultant: Cory Merrill MD Eosinophils/100 WBC (Bld) 2 % Normal 1-4 [facility] Comment on above: Performed By: #### C DP, BMP #### [facility] [address] [place], [place] [address] Hospice Care Consultant: Cory Merrill MD Erythrocyte distribution width (RBC) [Ratio] 13.9 % Normal 11.8-14.4 [facility] Comment on above: Performed By: #### C DP, BMP #### [address] [place], [facility] Hospice Care Consultant: Cory Merrill MD Hematocrit (Bld) [Volume fraction] 40.0 % Normal 36.3-47.1 [facility] Comment on above: Performed By: #### C DP, BMP #### [address] [place] [id number] Hospice Care Consultant: Cory Merrill MD Hemoglobin (Bld) [Mass/Vol] 13.1 g/dL Normal 11.9-15.1 [facility] Comment on above: Performed By: #### C DP, BMP #### [address] [place], [place] [id number] Hospice Care Consultant: Cory Merrill MD Immature granulocytes/100 WBC (Bld) 1 % High 0 [facility] Comment on above: Performed By: #### C DP, BMP #### [address] [place], [place] [id number] Hospice Care Consultant: Cory Merrill MD Lymphocytes (Bld) [#/Vol] 1.57 10*3/uL Normal 1.10-3.70 [facility] Comment on above: Performed By: #### C DP, BMP #### [address] [place], [place] [address]83 Hospice Care Consultant: Cory Merrill MD Lymphocytes/100 WBC (Bld) 19 % Low 24-43 [facility] Comment on above: Performed By: #### C DP, BMP #### [address] [place] [address] Hospice Care Consultant: Cory Merrill MD MCH (RBC) [Entitic mass] 29.6 pg Normal 25.2-33.5 [facility] Comment on above: Performed By: #### C DP, BMP #### [facility] [address] [place] [address] Dr. [place], [place] [id number] Hospice Care Consultant: Cory Merrill MD MCHC (RBC) [Mass/Vol] 32.8 g/dL Normal 28.4-34.8 [facility] Comment on above: Performed By: #### C DP, BMP #### [address] [place] [address] Hospice Care Consultant: Cory Merrill MD MCV (RBC) [Entitic vol] 90.5 fL Normal 82.6-102.9 [facility] Comment on above: Performed By: #### C DP, BMP #### [address] [place] [id number] Hospice Care Consultant: Cory Merrill MD Monocytes (Bld) [#/Vol] 0.65 10*3/uL Normal 0.10-1.20 [facility] Comment on above: Performed By: #### C DP, BMP #### [address] [place], [facility] Hospice Care Consultant: Cory Merrill MD Monocytes/100 WBC (Bld) 8 % Normal 3-12 [facility] Comment on above: Performed By: #### C DP, BMP #### [facility] [address] [place] [address] Dr. [place], [place] [id number] Hospice Care Consultant: Cory Merrill MD Neutrophil (Seg) 71 % High 36-65 [facility] Comment on above: Performed By: #### C DP, BMP #### [facility] [address] [place], [place] [id number] Hospice Care Consultant: Cory Merrill MD NRBC Automated 0.0 per 100 WBC Normal 0.0 [facility] Comment on above: Performed By: #### C DP, BMP #### [facility] [address] [place], [place] [id number] Hospice Care Consultant: Cory Merrill MD Platelet mean volume (Bld) [Entitic vol] 10.3 fL Normal 8.1-13.5 [facility] Comment on above: Performed By: #### C DP, BMP #### [facility] [address] [place], [place] [id number] Hospice Care Consultant: Cory Merrill MD Platelets (Bld) [#/Vol] 195 10*3/uL Normal 138-453 [facility] Comment on above: Performed By: #### C DP, BMP #### [address] [place] [address] Hospice Care Consultant: Cory Merrill MD RBC (Bld) [#/Vol] 4.42 10*6/uL Normal 3.95-5.11 [facility] Comment on above: Performed By: #### C DP, BMP #### [address] [place], [place] [id number] Hospice Care Consultant: Cory Merrill MD WBC (Bld) [#/Vol] 8.5 10*3/uL Normal 3.5-11.3 [facility] Comment on above: Performed By: #### C DP, BMP #### [address] [place], [place] [id number] Hospice Care Consultant: Cory Merrill MD Basic Metabolic Panelon 06-0 Anion gap [Moles/Vol] 14 mmol/L 9 - 17 mmol/L [facility] Calcium [Mass/Vol] 8.8 mg/dL 8.6 - 10. 4 mg/dL [facility] Chloride [Moles/Vol] 102 mmol/L 98 - 10 7 mmol/L [facility] CO2 [Moles/Vol] 24 mmol/L 20 - 31 mmol/L [facility] Creatinine [Mass/Vol] 0.78 mg/dL 0.50 - 0.90 mg/dL [facility] GFR >60 >60 mL/min [facility] GFR Non- >60 >60 mL/min [facility] Glucose [Mass/Vol] 162 mg/dL High 70 - 99 mg/dL [facility] Interpretation and review of laboratory results Abnormal [facility] Potassium [Moles/Vol] 3.8 mmol/L 3.7 - 5.3 mmol/L [facility] Sodium [Moles/Vol] 140 mmol/L 135 - 144 mmol/L [facility] Urea nitrogen (BldV) [Mass/Vol] 15 mg/dL 6 - 20 mg/dL [facility] Urea nitrogen/Creatinine (Bld) [Mass ratio] 19 [facility] CBC with Auto Differentialon 10-29-2021 Absolute Eos # 0.13 [facility] Absolute Immature Granulocyte 0.08 [facility] Absolute [facility] # 1.[facility] Absolute Jessamine # 0.65 [facility] Basophils (Bld) [#/Vol] 10*3/uL [facility] Basophils/100 WBC (Bld) 0 % 0 - 2 % [facility] Eosinophils/100 WBC (Bld) 2 % 1 - 4 % [facility] Hematocrit (Bld) [Volume fraction] 40.0 % 36.3 - 47.1 % [facility] Hemoglobin (Bld) [Mass/Vol] 13.1 g/dL 11.9 - 15.1 g/dL [facility] Immature granulocytes/100 WBC (Bld) 1 % High 0 [facility] Interpretation and review of laboratory results Abnormal [facility] Lymphocytes/100 WBC (Bld) 19 % Low 24 - 43 % [facility] MCH (RBC) [Entitic mass] 29.6 pg 25.2 - 33.5 pg [facility] MCHC (RBC) [Mass/Vol] 32.8 g/dL 28.4 - 34.8 g/dL [facility] MCV (RBC) [Entitic vol] 90.5 fL 82.6 - 102.9 fL [facility] Monocytes/100 WBC (Bld) 8 % 3 - 12 % [facility] NRBC Automated 0.0 0.0 per 100 WBC [facility] Platelet distribution width (Bld) [Ratio] 13.9 % 11.8 - 14.4 % [facility] Platelet mean volume (Bld) [Entitic vol] 10.3 fL 8.1 - 13.5 fL [facility] Platelets (Bld) [#/Vol] 195 10*3/uL [facility] RBC (Bld) [#/Vol] 4.42 10*6/uL 3.95 - 5.1 1 m/uL [facility] Segmented neutrophils/100 WBC (Bld) 71 % High 36 - 65 % [facility] Segs Absolute 5.91 [facility] WBC (Bld) [#/Vol] 8.5 10*3/uL [facility] Laboratory - Chemistry and C hemistry - challengeon 10-29-2021 GFR/1.73 sq M.predicted MDRD (S/P/Bld) [Vol rate/Area] [facility] Comment on above: Average GFR for 30-3 9 years old: 107 mL/min/1.73sq m Chronic Kidney Disease: <60 mL/min/1.73sq m Kidney failure: <15 mL/min/1.73sq m eGFR calculated using average adult body mass. Additional eGFR calculator available at: [email or web address] Stage 1: Some kidney damage normal GFR Stage 2: Mild kidney damage GFR 60-89 Stage 3: Moderate kidney damage GFR 30-59 Stage 4: Severe kidney damage GFR 15-29 Stage 5: Severe kidney damage GFR <15 ESRD - chronic treatment by dialysis or transplant Vital Signs Date Time Vital Sign Value Performing Clinician Facility 01-25-2022 18:55-0400 Body height 165.1 cm Kecia Oliver Other [facility] 01-25-2022 18:55-0400 Body mass index (BMI) [Ratio] 54.91 kg/m2 Kecia Oliver Other [facility] 01-25-2022 18:55-0400 Body temperature 98.1 [degF] Kecia Oliver Other [facility] 01-25-2022 18:55-0400 Body weight 149.69 kg Kecia Oliver Other [facility] 01-25-2022 18:55-0400 Diastolic blood pressure 79 mm[Hg] Kecia Oliver Other [facility] 01-25-2022 18:55-0400 Respiratory rate 18 /min Kecia Oliver Other [facility] 01-25-2022 18:55-0400 SaO2% (BldA) [Mass fraction] 99 % Kecai Oliver Other [facility] 01-25-2022 18:55-0400 Systolic blood pressure 129 mm[Hg] Kecia Oliver Other [facility] 10-29-2021 22:46-0400 Diastolic blood pressure 95 mm[Hg] Fara Blount MD Work Phone: [facility] 10-29-2021 22:46-0400 Systolic blood pressure 140 mm[Hg] Fara Blount MD Work Phone: [facility] 10-29-2021 22:42-0400 Body temperature 98.01 [degF] Fara Blount MD Work Phone: [facility] 10-29-2021 22:42-0400 Heart rate 89 /min Fara Blount MD Work Phone: [facility] 10-29-2021 22:42-0400 Respiratory rate 19 /min Fara Blount MD Work Phone: [facility] 10-29-2021 22:42-0400 SaO2% (BldA) [Mass fraction] 97 % Fara Blount MD Work Phone: [facility] Encounters Encounter Date Encounter Type Care Provider Facility Start: 06-09-2022 End: 06-10-[address] CRESCENCIO QUINTERO Facility:[facility] Start: 02-18-2022 End: 02-19-[address] CRESCENCIO QUINTERO Facility:[facility] Start: 01-25-2022 End: 01-25-2022 ambulatory Kecia Melody Other [facility] Start: 01-25-2022 Office outpatient vi sit 15 minutes Kecia Melody [facility] Start: 11-01-2021 End: 11-01-2021 ambulatory Kecia Melody Other [facility] Start: 11-01-2021 Office outpatient ne w 10 minutes Kecia Melody [facility] Start: 10-30-2021 End: 10-30-2021 [facility] Start: 10-29-2021 End: 10-30-2021 Emergency department patient visit Fara Blount MD Work Phone: [facility] ED Comment on above: Cellulitis, unspecif ied cellulitis site (Primary Dx) Start: 09-13-2021 End: 09-14-[address] CRESCENCIO QUINTERO Facility:[facility] Procedures Date Procedure Procedure Detail Performing Clinician Start: 10-29-2021 Basic metabolic pane l calcium total Fraa Blount MD Work Phone: Plan of Treatment Date Care Activity Detail Author Start: 01-25-2022 Influenza vaccination Flu vacc ine (Season Ended) [facility] Start: 2007 DTaP/Tdap/Td vaccine (1 - Tdap) DTaP/Tdap/Td vaccine (1 - Tdap) [facility] Start: 1993 COVID-19 Vaccine (1) COVID-19 Vaccin e (1) [facility] Payers Date Payer Category Payer Unknown [id number] 1988 Unknown [id number] 1988 Unknown [id number] 1988 Unknown [id number] 1959 Unknown [id number] 1959 Unknown [id number] Social History Date Type Detail Facility Start: 10-29-2021 Tobacco smoking status AKIS Never smoked tobacco [facility] Phone: Start: 10-29-2021 Tobacco use and exposure Smokeless tobacco non-user [facility] Phone: Start: 1990 Sex Assigned At Not on file B [facility] Phone: Start: 10-19-2021 End: 10-30-2021 Exposure to SARS-CoV-2 (event) Not sure [facility] Phone: Sex Assigned At Sex Assigned At [facility] Other Evaluation note 01-25-2022 Note Date & Type Note Facility 01-25-2022 Evaluation note Encounter Date Diagnosis Assessment Notes Jan, Lateral epicondylitis of right elbow (ICD-10 - M77.11) Lateral epicondylitis (tennis elbow) home care material was printed Wear a tennis elbow splint to your right forearm for comfort. You may get 1 of these at any pharmacy. Take ibuprofen, 600 mg 3-4 times a day with food as needed for pain. Ice your elbow 2-3 times a day. Follow-up with your family physician if no improvement in 5 to 7 days. [facility] Other Evaluation note 11-01-2021 Note Date & Type Note Facility 11-01-2021 Evaluation note Encounter Date Diagnosis Assessment Notes Oct, Cellulitis of left lower leg (ICD-10 - L03.116) Continue home medications as prescribed. Elevate your leg is much as possible, apply warm compresses to the area 2-3 times a day. Off work tomorrow. Follow-up with your family physician on Saturday as scheduled. Go to the ER for worsening symptoms or concerns, especially calf pain. [facility] Other Hospital Discharge instructions 10-29-2021 InstructionsAttachments Note Date & Type Note Facility 10-29-2021 Hospital Discharg e instructions Fara Blount MD - 10/30/2021 Take antibiotics as directed until complete. Fedu-vix-xzcqoae probiotics as needed and directed. Follow-up with primary care provider in 3 to 5 days if symptoms do not resolve. Return immediately for any worsening pain swelling redness fevers chills or any other acute concerns The following attachments cannot be sent through Care Everywhere.Cellulitis ([place])documented in this encounter [facility] Phone: Evaluation note Note Date & Type Note Facility Evaluation note Diagnosis Cellulitis, unspecified cellulitis site- Primary documented in this encounter [facility]: History general Narrative - Reported Note Date & Type Note Facility History general Narrative - Reported Type Medical History Hypothyroid Medical History Water retention Surgical History C section Hospitalization History during and the n delivery [facility] Other Summary Purpose Family History No Family History Records FoundNo Family History Records Found Advance Directives No Advanced Directives Records FoundNo Advanced Directives Records Found Additional Source Comments Reason for Visit (unrecogniz ed section and content) Reason Comments Cellulitis left lower leg, noti kayode increased redness and swelling today Ordered Prescriptions (unrec ognized section and content) Prescription Sig Dispensed Refills Start Date End Da te cephALEXin (KEFLEX) 500 MG capsule Take 1 capsule by mouth 3 times daily for 10 days 30 capsule 0 10/30/2021 11/09/2021 sulfamethoxazole-trimeth oprim (BACTRIM DS) 800-160 MG per tablet Take 1 tablet by mouth 2 times daily for 10 days 20 tablet 0 10/30/2021 11/09/2021 Scheduled Active and Recently Administ ered Medications (unrecognized section and content) Medication Order 10/28/2021 10/29/2021 10/30/2021 cephALEXin (KEFLEX) capsule 500 mg (COMPLETED) 500 mg, Oral, ONCE, 1 dose, On Sat10/30/21 at 0100, Antimicrobial Indications: Skin and Soft Tissue Infection 0059 (Given - Provid er: Carmen Lomax RN) sulfamethoxazole-trimethoprim (BACTRIM DS;SEPTRA DS) 800-160 MG per tablet 1 tablet (COMPLETED) 1 tablet, Oral, ONCE, 1 dose, On Sat10/30/21 at 0100, Antimicrobial Indications: Skin and Soft Tissue Infection 0059 (Given - Provid er: Carmen Lomax RN) INFORMATION SOURCE (unrecogn ized section and content) DATE CREATED AUTHOR 10/30/2021 Sameera ferguson DATE CREATED AUTHOR AUTHOR'S BRITTANI ATION 06/09/2022 [facility] FOR RECORDS PERTAINING TO PATIENTS WHO ARE OR HAVE BEEN ENROLLED IN A CHEMICAL DEPENDENCY/SUBSTANCEABUSE PROGRAM, SOME INFORMATION MAY BE OMITTED. This clinical summary was aggregated from multiple sources. Caution should be exercised in using it in the provision of clinical care. This summary normalizes information from multiple sources, and as a consequence, information in this document may materially change the coding, format and clinical context of patient data. In addition, data may be omitted in some cases. CLINICAL DECISIONS SHOULD BE BASED ON THE PRIMARY CLINICAL RECORDS. [employer] provides no warranty or guarantee of the accuracy or completeness of information in this document.
--- NOTE | 2024-08-02 00:44 | ED.GENADUL1 ---
HPI HPI - General Adult General Chief complaint: Fever Stated complaint: flu like symptoms Time Seen by Provider: 08/02/24 00:23 Source: patient Mode of arrival: walk-in Limitations: no limitations History of Present Illness HPI narrative: cc = flu-like symptoms Patient presents with 2 days of flulike illness - she describes nasal congestion, cough, body aches and subjective fevers. No GI symptoms but she did admit to some dizziness. On questioning she admitted that she had not been eating or drinking the way that she normally does -taking in much less. She denied any nausea. She told me I just do not have much of an appetite . No chest pain or shortness of breath. No neck pain or back pain. No headache. No visual change. No sore throat or ear pain. Related Data Home Medications ?Medication ?Instructions ?Recorded ?Confirmed furosemide 40 mg tablet 40 mg PO DAILY 03/08/23 08/02/24 levothyroxine 112 mcg tablet 112 mcg PO DAILY 03/08/23 08/02/24 Previous Rx's ?Medication ?Instructions ?Recorded hydroxyzine HCl 25 mg tablet 25 mg PO Q6H PRN itching #20 tabs 10/27/23 prednisone 20 mg tablet See Rx Instructions .Route 10/27/23 .COMPLEX #12 tabs ketorolac 10 mg tablet 10 mg PO TID PRN pain #10 tabs 02/10/24 methocarbamol 750 mg tablet 750 mg PO TID PRN pain #20 tabs 02/10/24 prednisone 20 mg tablet 60 mg (3 x 20 mg) PO DAILY 3 days 02/10/24 #9 tabs zhcfbigtqvdyxnh-sudgxfakrdyqacy-IC 10 ml PO Q6H PRN cold symptoms 08/02/24 2 mg-30 mg-10 mg/5 mL oral syrup #118 mL (Bromfed DM) Allergies Allergy/AdvReac Type Severity Reaction Status Date / Time No Known Drug Allergies Allergy Verified 08/02/24 00:32 Opioid HPI Opioid Management Most Recent Opioid Data: No Data to Display PFSH PFSH Social History Little interest or pleasure in doing things: not at all Feeling down, depressed, or hopeless: not at all Exam Narrative Exam Narrative: Nurses notes and vital signs reviewed and patient is not hypoxic. afebrile General: Well-appearing and in no apparent distress. Skin: Warm, dry, no pallor noted. No rash. Head: Normocephalic, atraumatic. Neck: Supple, non-tender. No cervical lymphadenopathy. No meningismus. Eye: Pupils are equal, round and EOMI. No scleral icterus. Ears, Nose, Mouth, and Throat: TM are clear, mild posterior oropharynx erythema, clear rhinorrhea and nasal mucosal hypertrophy, uvula is mid-line Oral mucosa is moist Cardiovascular: Borderline tachycardia at 100 bpm b. Respiratory: No accessory muscle use or respiratory distress. Mild conversational dyspnea. Lungs are clear to auscultation, no wheezing, rales or rhonchi Musculoskeletal: normal ROM, no calf or popliteal tenderness, no lower extremity edema/swelling Neurological: A&O x4. No cranial nerve dysfunction observed. No truncal ataxia. Moves all extremities. Sensation intact. Psychiatric: Cooperative and interactive. Normal mood and affect. Constitutional Vital Signs, click to edit/add: Last Vital Signs Temp 99.5 F 08/02/24 00:27 Pulse 100 H 08/02/24 00:27 Resp 22 H 08/02/24 00:27 BP 152/94 H 08/02/24 00:27 Pulse Ox 94 L 08/02/24 00:27 O2 Del Method Room Air 08/02/24 00:27 Course Vital Signs Vital signs: Vital Signs Temperature 99.5 F 08/02/24 00:27 Pulse Rate 100 H 08/02/24 00:27 Respiratory Rate 22 H 08/02/24 00:27 Blood Pressure 152/94 H 08/02/24 00:27 Pulse Oximetry 94 L 08/02/24 00:27 Oxygen Delivery Method Room Air 08/02/24 00:27 Temperature 99.5 F 08/02/24 00:27 Pulse Rate 100 H 08/02/24 00:27 Respiratory Rate 22 H 08/02/24 00:27 Blood Pressure 152/94 H 08/02/24 00:27 Pulse Oximetry 94 L 08/02/24 00:27 Oxygen Delivery Method Room Air 08/02/24 00:27 Medical Decision Making MDM Narrative Medical decision making narrative: Patient presents with mild consolation of flulike symptoms which began about 36 to 48 hours ago. She is able to eat and drink and without nausea, vomiting or diarrhea. She admits to decreased oral fluid intake and therefore is is experienced some mild dizziness. No syncope. No cardiac symptoms such as chest pain or palpitations. No shortness of breath although when she talks she does seem to get mildly tachypneic. Lung sounds are clear throughout. She has some sign of upper respiratory infection. Her evaluation is consistent with acute viral syndrome. She was swabbed at triage and swabs for influenza and COVID were negative. The patient was discharged home with prescription for Bromfed syrup and a work excuse. Reasons to return to the ED were discussed. Lab Data Lab results reviewed: Yes I reviewed the patient's lab results Labs: Lab Results 08/02/24 Range/Units 00:30 Influenza Type A Ag Negative Influenza Type B Ag Negative SARS-CoV-2 Ag (CV2AG) Negative (NEGATIVE) Discharge Plan Discharge Chief Complaint: Fever Clinical Impression: Viral infection Patient Disposition: Home, Self-Care Time of Disposition Decision: 00:43 Condition: Good Prescriptions / Home Meds: New qhtfhpjyxymbyly-luvzgrfsn-MF [Bromfed DM] 2-30-10 mg/5 mL syrup 10 ml PO Q6H PRN (Reason: cold symptoms) Qty: 118 0RF No Action prednisone 20 mg tablet 60 mg PO DAILY 3 Days Qty: 9 0RF ketorolac 10 mg tablet 10 mg PO TID PRN (Reason: pain) Qty: 10 0RF methocarbamol 750 mg tablet 750 mg PO TID PRN (Reason: pain) Qty: 20 0RF levothyroxine 112 mcg tablet 112 mcg PO DAILY furosemide 40 mg tablet 40 mg PO DAILY prednisone 20 mg tablet See Rx Instructions .ROUTE .COMPLEX Qty: 12 0RF Rx Instructions: 3 tabs daily for 2 days, then 2 tabs daily for 2 days, then 1 tab daily for 2 days hydroxyzine HCl 25 mg tablet 25 mg PO Q6H PRN (Reason: itching) Qty: 20 0RF Print Language: Chinese Instructions: Viral Syndrome (ED) Referrals: [facility] [Primary Care Provider] - 1 week Discharge Date/Time: 08/02/24 00:56
[2024-08-02 01:52] LABS: Influenza Virus A Antigen Negative; Influenza Virus B Antigen Negative; Internal Control Within Normal Limits; SARS-CoV-2 Ag NEGATIVE (NEGATIVE)
== END 2024-08-02 00:56 | disposition home or self-care (01) ==
PROVIDERS: Emergency Provider Emergency Medicine
DX: B34.9 Viral infection, unspecified (principal)
CPT/HCPCS: 87804; 87811; 99283

== ENCOUNTER 2024-08-14 11:31 | Outpatient (OUT) | payer MEDICAID, SELFPAY ==
--- OUTSIDE RECORDS SUMMARY | 2024-08-14 11:37 | XMS_ITS | CCD ---
Author Organization [facility] Care Team Providers Care Pathology Manager Name Role Phone Unavailable Primary Care Provider [...] BASO # 0.0 103/ul Normal 0.0-0.[address] [facility] Comment on above: Performed By: #### C BC ####[facility] [address] [id number]. Nathalie Marroquin Basophils/100 WBC (Bld) 0.4 % Normal 0.2-2.[address] [facility] Comment on above: Performed By: #### C BC ####[facility] [address] [id number]. Nathalie Marroquin EO # 0.1 103/ul Normal 0.0-0.[address] [facility] Comment on above: Performed By: #### C BC ####[facility] T[address] [place] [phone]. Nathalie Marroquin Eosinophils/100 WBC (Bld) 1.9 % Normal 0.9-7.[address] [facility] Comment on above: Performed By: #### C BC ####[facility] [address] [place], [place] [address]Dr. Nathalie Marroquin Erythrocyte distribution width (RBC) [Ratio] 14.2 % Normal 11.0-15.0 [facility] Comment on above: Performed By: #### C BC ####[facility] [address] [place], [place] [id number]. Nathalie Marroquin Hematocrit (Bld) [Volume fraction] 38.2 % Normal 36.0-48.[address] [facility] Comment on above: Performed By: #### C BC ####[facility] [address] [place], [place] [id number]. Nathalie Marroquin Hemoglobin (Bld) [Mass/Vol] 13.2 g/dL Normal 12.0-16.[address] [facility] Comment on above: Performed By: #### C BC ####[facility] [address] [place], [place] [id number]. Nathalie Marroquin IG # 0.02 10e3/ul Normal 0.00-0.[address] [facility] Comment on above: Performed By: #### C BC ####[facility] [address] [place], [place] [id number]. Nathalie Marroquin IG % 0.4 % Normal 0.0-0.[address] [facility] Comment on above: Performed By: #### C BC ####[facility] [address] [place] [phone]. Nathalie Marroquin LYMPH # 1.2 103/ul Normal 1.2-3.8 [facility] Comment on above: Performed By: #### C BC ####[facility] [address] [place] [phone]. Nathalie Marroquin Lymphocytes/100 WBC (Bld) 25.4 % Normal 20.5-60.0 [facility] Comment on above: Performed By: #### C BC ####[facility] [address] [phone]. Nathalie Marroquin MANUAL DIFF REQ NO Normal [facility] Comment on above: Performed By: #### C BC ####[facility] [address] [phone]. Nathalie Marroquin MCH (RBC) [Entitic mass] 30.1 pg Normal 26.7-34.0 [facility] Comment on above: Performed By: #### C BC ####[facility] [address] [place] [phone]. Nathalie Marroquin MCHC (RBC) [Mass/Vol] 34.6 g/dL Normal 29.9-35.2 [facility] Comment on above: Performed By: #### C BC ####[facility] [address] [place] [phone]. Nathalie Marroquin MCV (RBC) [Entitic vol] 87.2 fL Normal 81.0-99.0 [facility] Comment on above: Performed By: #### C BC ####[facility] [address] [place] [phone]. Nathalie Marroquin MONO # 0.3 103/ul Normal 0.3-0.[address] [facility] Comment on above: Performed By: #### C BC ####[facility] [address]qoxnxnt[address] [place] [phone]. Nathalie Marroquin Monocytes/100 WBC (Bld) 5.8 % Normal 1.7-12.[address] [facility] Comment on above: Performed By: #### C BC ####[facility] Qstpdjjmiu[address] [place] [phone]. Nathalie Marroquin NEUT # 3.2 103/ul Normal 1.4-6.[address] [facility] Comment on above: Performed By: #### C BC ####[facility] [address] [place] [phone]. Nathalie Marroquin Neutrophils/100 WBC (Bld) 66.1 % Normal 43.0-75.0 [facility] Comment on above: Performed By: #### C BC ####[facility] [address] [place] [phone]. Nathalie Marroquin Platelet mean volume (Bld) [Entitic vol] 9.1 fL Critically low 9.5-13.5 [facility] Comment on above: Performed By: #### C BC ####[facility] [address] [place] [address]Dr. Nathalie Marroquin PLT 276 103/ul Normal 150-[address] [facility] Comment on above: Performed By: #### C BC ####[facility] [address] [place], [place] [id number]. Nathalie Marroquin RBC 4.38 106/ul Normal 4.20-5.[address] [facility] Comment on above: Performed By: #### C BC ####[facility] [address]rizdtlot[address] [place] [phone]. Nathalie Marroquin WBC 4.9 103/ul Normal 4.0-11.[address] [facility] Comment on above: Performed By: #### C BC ####[facility] [address] [place] [phone]. Nathalie Marroquin FREE T3on 06-09-2022 FREE T3 2.01 pg/mlL Critically low 2.18-3.98 The [facility] Comment on above: Performed By: #### F T3, TSH, LIPID, BMP, LIVER ####[facility] [address]ur[address] [place] [phone]. Nathalie Marroquin FREE T4on 06-09-2022 Free T4 [Mass/Vol] 0.66 ng/dL Critically low 0.76-1.46 [facility] Comment on above: Performed By: #### F T4 #### [facility] [phone] Nathalie Marroquin GLYCOHEMOGLOBIN A1Con 2022 ADA RECOMMENDATION SEE BELOW Normal [facility] Comment on above: Result Comment: ADA RECOMMENDED LIMIT 4.0 - 6.0 ADA THERAPEUTIC TARGET < 7.0 ACTION SUGGESTED > 7.0 Performed By: #### A 1C #### [facility] [address] [address] [address] Nathalie Marroquin Glucose [Mass/Vol] 171 mg/dL Normal [facility] Comment on above: Performed By: #### A 1C #### [facility] [address] [address] [address] Nathalie Marroquin HbA1c (Bld) [Mass fraction] 7.6 % Critically high 4.5-6.2 [facility] Comment on above: Performed By: #### A 1C #### [facility] [phone] Nathalie Marroquin LIPID PROFILEon 06-09-2022 CHOL-HDL RATIO NORM SEE BELOW Normal [facility] Comment on above: Result Comment: 3.3 - 4.4 LOW RISK 4.4 - 7.1 AVERAGE RISK 7.1 - 11.0 MODERATE RISK >11.0 HIGH RISK Performed By: #### F T3, TSH, LIPID, BMP, LIVER ####[facility] [address]zk[address] [place], [place] [address]dDr. Nathalie Marroquin Cholesterol [Mass/Vol] 163 mg/dL Normal <=200 [facility] Comment on above: Performed By: #### F T3, TSH, LIPID, BMP, LIVER ####[facility] [address]vx[address] [place] [phone]. Nathalie Marroquin Cholesterol in HDL [Mass/Vol] 42 mg/dL Normal 40-60 [facility] Comment on above: Performed By: #### F T3, TSH, LIPID, BMP, LIVER ####[facility] [address]km[address] [place] [phone]. Nathalie Marroquin Cholesterol in LDL [Mass/Vol] 98.2 mg/dL Normal [facility] Comment on above: Performed By: #### F T3, TSH, LIPID, BMP, LIVER ####[facility] [address] [place] [address]Dr. Nathalie Marroquin Cholesterol.total/Cho lesterol in HDL [Mass ratio] 3.9 {ratio} Normal [facility] Comment on above: Performed By: #### F T3, TSH, LIPID, BMP, LIVER ####[facility] [address]savu[address] [place] [address]Dr. Nathalie Marroquin HDL NORMAL > or = 60 mg/dl - LO W CARDIOVASCULAR RISK <40 mg/dl - HIGH CARDIOVASCULAR RISK Normal [facility] Comment on above: Performed By: #### F T3, TSH, LIPID, BMP, LIVER ####[facility] [address] [place] [address]Dr. Nathalie Marroquin LDL CALC NORMAL SEE BELOW Normal [facility] Comment on above: Result Comment: <100 mg/dl OPTIMAL 100 - 129 mg/dl NEAR OR ABOVE OPTIMAL 130 - 159 mg/dl BORDERLINE HIGH 160 - 189 mg/dl HIGH >190 mg/dl VERY HIGH Performed By: #### F T3, TSH, LIPID, BMP, LIVER ####[facility] [address]wlufc[address] [place] [address]Dr. Nathalie Marroquin Triglyceride [Mass/Vol] 114 mg/dL Normal <=[address] [facility] Comment on above: Performed By: #### F T3, TSH, LIPID, BMP, LIVER ####[facility] [address]ugcvon[address] [place] [phone]. Nathalie Marroquin VLDL CALC 22.8 mg/dL Normal [facility] Comment on above: Performed By: #### F T3, TSH, LIPID, BMP, LIVER ####[facility] [address] [place] [address]Dr. Britnibrett Marroquin LIVER PROFILEon 06-09-2022 Albumin [Mass/Vol] 3.3 g/dL Critically low 3.4-5.0 [facility] Comment on above: Performed By: #### F T3, TSH, LIPID, BMP, LIVER ####[facility] [address]wo[address]qrlr[address] [place] [address]Dr. Nathalie Marroquin Albumin/Globulin [Mass ratio] 0.7 {ratio} Normal [facility] Comment on above: Performed By: #### F T3, TSH, LIPID, BMP, LIVER ####[facility] [address] [place] [address]Dr. Nathalie Marroquin ALP [Catalytic activity/Vol] 113 U/L Normal 46-[address] [facility] Comment on above: Performed By: #### F T3, TSH, LIPID, BMP, LIVER ####[facility] [address] [place], [place] [address]Dr. Britnibrett Marroquin ALT [Catalytic activity/Vol] 45 U/L Normal 14-[address] [facility] Comment on above: Performed By: #### F T3, TSH, LIPID, BMP, LIVER ####[facility] Hmmqblblqy[address] [place], [place] [address]Dr. Nathalie Marroquin AST [Catalytic activity/Vol] 26 U/L Normal 15-[address] [facility] Comment on above: Performed By: #### F T3, TSH, LIPID, BMP, LIVER ####[facility] [address]ln[address] [place], [place] [address]Dr. Nathalie Marroquin BILI, CONJUGATED 0.1 mg/dL Normal 0.0-0.2 The [facility] Comment on above: Performed By: #### F T3, TSH, LIPID, BMP, LIVER ####[facility] [address] [place], [place] [address]Dr. Nathalie Marroquin Bilirubin [Mass/Vol] 0.4 mg/dL Normal 0.2-1.[address] [facility] Comment on above: Performed By: #### F T3, TSH, LIPID, BMP, LIVER ####[facility] [address] [place], [place] [address]Dr. Nathalie Marroquin Globulin (S) [Mass/Vol] 4.8 g/dL Normal [facility] Comment on above: Performed By: #### F T3, TSH, LIPID, BMP, LIVER ####[facility] P[address]ihuom[address] [place], [place] [address]Dr. Nathalie Marroquin Protein [Mass/Vol] 8.1 g/dL Normal 6.4-8.2 [facility] Comment on above: Performed By: #### F T3, TSH, LIPID, BMP, LIVER ####[facility] [address]ayhgtv[address] [place] [address]Dr. Nathalie Marroquin PROF CHEM 8 (BAS METB)on Anion gap [Moles/Vol] 9.7 mmol/L Normal [facility] Comment on above: Performed By: #### F T3, TSH, LIPID, BMP, LIVER ####[facility] [address]qyms[address] [place] [address]Dr. Nathalie Marroquin Calcium [Mass/Vol] 8.5 mg/dL Normal 8.5-10.1 [facility] Comment on above: Performed By: #### F T3, TSH, LIPID, BMP, LIVER ####[facility] [address]shc[address] [place] [address]Dr. Britnibrett Marroquin Chloride [Moles/Vol] 101 mmol/L Normal 98-[address] [facility] Comment on above: Performed By: #### F T3, TSH, LIPID, BMP, LIVER ####[facility] [address]ok[address] [place] [address]Dr. Nathalie Marroquin CO2 [Moles/Vol] 30.2 mmol/L Normal 21.0-32.0 [facility] Comment on above: Performed By: #### F T3, TSH, LIPID, BMP, LIVER ####[facility] [address]ufama[address] [place] [address]Dr. Nathalie Marroquin Creatinine [Mass/Vol] 0.82 mg/dL Normal 0.55-1.[address] [facility] Comment on above: Performed By: #### F T3, TSH, LIPID, BMP, LIVER ####[facility] [address]roqr[address] [place] [address]Dr. Nathalie Lopez EGFR-AF BULGARIAN >60 Normal >=60 [facility] Comment on above: Performed By: #### F T3, TSH, LIPID, BMP, LIVER ####[facility] [address]wg[address] [place] [address]Dr. Nathalie Marroquin EGFR-NON AF BULGARIAN >60 Normal >=60 [facility] Comment on above: Performed By: #### F T3, TSH, LIPID, BMP, LIVER ####[facility] [address]bdpbhz[address] [place] [address]Dr. Nathalie Marroquin Glucose [Mass/Vol] 151 mg/dL Critically high 74-106 T [facility] Comment on above: Performed By: #### F T3, TSH, LIPID, BMP, LIVER ####[facility] [address]uqrb[address] [place] [address]Dr. Nathalie Marroquin Potassium [Moles/Vol] 3.9 mmol/L Normal 3.5-5.1 [facility] Comment on above: Performed By: #### F T3, TSH, LIPID, BMP, LIVER ####[facility] [address] [place] [address]Dr. Nathalie Marroquin Sodium [Moles/Vol] 137 mmol/L Normal 136-145 [facility] Comment on above: Performed By: #### F T3, TSH, LIPID, BMP, LIVER ####[facility] [address]ir[address] [place] [address]Dr. Nathalie Marroquin Urea nitrogen [Mass/Vol] 17.0 mg/dL Normal 7.0-18.0 [facility] Comment on above: Performed By: #### F T3, TSH, LIPID, BMP, LIVER ####[facility] [address] [place] [address]Dr. Nathalie Marroquin Urea nitrogen/Creatinine [Mass ratio] 20.7 mg/mg Normal [facility] Comment on above: Performed By: #### F T3, TSH, LIPID, BMP, LIVER ####[facility] [address] [place] [address]Dr. Nathalie Marroquin TSHon 06-09-2022 TSH 8.979 uIU/mL Critically high 0.358-3.740 [facility] Comment on above: Performed By: #### F T3, TSH, LIPID, BMP, LIVER ####[facility] [address] [place] [address]Dr. Nathalie Marroquin CBC AUTO DIFFon 02-18-2022 BASO # 0.0 103/ul Normal 0.0-0.1 [facility] Comment on above: Performed By: #### C BC #### [facility] [address] [address] [address] Nathalie Marroquin Basophils/100 WBC (Bld) 0.3 % Normal 0.2-2.0 [facility] Comment on above: Performed By: #### C BC #### [facility] [address] [address] [address] Nathalie Marroquin EO # 0.2 103/ul Normal 0.0-0.[address] [facility] Comment on above: Performed By: #### C BC #### [facility] [address] [place] [address] Dr. Nathalie Marroquin Eosinophils/100 WBC (Bld) 2.3 % Normal 0.9-7.0 [facility] Comment on above: Performed By: #### C BC #### [facility] [address] [place] [address] Dr. Nathalie Marroquin Erythrocyte distribution width (RBC) [Ratio] 14.6 % Normal 11.0-15.0 [facility] Comment on above: Performed By: #### C BC #### [facility] [address] [place] [address] Dr. Nathalie Marroquin Hematocrit (Bld) [Volume fraction] 38.8 % Normal 36.0-48.0 [facility] Comment on above: Performed By: #### C BC #### [facility] [address] [place] [address] Dr. Nathalie Marroquin Hemoglobin (Bld) [Mass/Vol] 12.7 g/dL Normal 12.0-16.[address] [facility] Comment on above: Performed By: #### C BC #### [facility] [address] [place] [address] Dr. Nathalie Marroquin IG # 0.04 10e3/ul Critically high 0.00-0.03 [facility] Comment on above: Performed By: #### C BC #### [facility] [address] [place] [address] Dr. Nathalie Marroquin IG % 0.5 % Normal 0.0-0.5 [facility] Comment on above: Performed By: #### C BC #### [facility] [address] [place] [address] Dr. Nathalie Marroquin LYMPH # 1.9 103/ul Normal 1.2-3.[address] [facility] Comment on above: Performed By: #### C BC #### [facility] [address] [place] [address] Dr. Nathalie Marroquin Lymphocytes/100 WBC (Bld) 23.9 % Normal 20.5-60.0 [facility] Comment on above: Performed By: #### C BC #### [facility] [address] [place] [address] Dr. Nathalie Marroquin MANUAL DIFF REQ NO Normal [facility] Comment on above: Performed By: #### C BC #### [facility] [address] [place] [address] Dr. Nathalie Marroquin MCH (RBC) [Entitic mass] 29.6 pg Normal 26.7-34.0 [facility] Comment on above: Performed By: #### C BC #### [facility] [address] [place] [address] Dr. Nathalie Marroquin MCHC (RBC) [Mass/Vol] 32.7 g/dL Normal 29.9-35.[address] [facility] Comment on above: Performed By: #### C BC #### [facility] [address] [place] [address] Dr. Nathalie Marroquin MCV (RBC) [Entitic vol] 90.4 fL Normal 81.0-99.[address] [facility] Comment on above: Performed By: #### C BC #### [facility] [address] [place] [address] Dr. Nathalie Marroquin MONO # 0.5 103/ul Normal 0.3-0.8 [facility] Comment on above: Performed By: #### C BC #### [facility] [address] [place] [address] Dr. Nathalie Marroquin Monocytes/100 WBC (Bld) 6.5 % Normal 1.7-12.0 [facility] Comment on above: Performed By: #### C BC #### [facility] [address] [place] [address] Dr. Nathalie Marroquin NEUT # 5.3 103/ul Normal 1.4-6.5 [facility] Comment on above: Performed By: #### C BC #### [facility] [address] [place] [address] Dr. Nathalie Marroquin Neutrophils/100 WBC (Bld) 66.5 % Normal 43.0-75.0 [facility] Comment on above: Performed By: #### C BC #### [facility] [address] [place] [address] Dr. Nathalie Marroquin Platelet mean volume (Bld) [Entitic vol] 9.5 fL Normal 9.5-13.5 [facility] Comment on above: Performed By: #### C BC #### [facility] [address] [place] [address] Dr. Nathalie Marroquin PLT 287 103/ul Normal 150-[address] [facility] Comment on above: Performed By: #### C BC #### [facility] [address] [place] [address] Dr. Nathalie Marroquin RBC 4.29 106/ul Normal 4.20-5.40 [facility] Comment on above: Performed By: #### C BC #### [facility] [address] [place] [address] Dr. Nathalie Marroquin WBC 7.9 103/ul Normal 4.0-11.[address] [facility] Comment on above: Performed By: #### C BC #### [facility] [address] [place] [address] ABD/PELV W CONon [...] RAUL SHARIF Date: 2022-02-18 20:02 Normal [facility]26 SARS-CoV-2 (COVID-19) RNA SANYA+probe Ql (Unsp spec) Not detected Normal NOT DETECTED [facility] Comment on above: Result Comment: When diagnostic [...] for this test is supported by the [place] of [employer] and Human Service's declaration that [...] used). Performed By: #### C VDTBH #### [facility] [address] [address] [address] Nathalie Marroquin ER URINE PROFILEon 2 Bilirubin Ql (U) Negative Normal NEGATIVE [facility] Comment on above: Performed By: #### P REGU, UMICRO, ERUR #### [facility] [address] [address] [address] Nathalie Marroquin Clarity (U) CLEAR Normal CLEAR [facility] Comment on above: Performed By: #### P REGU, UMICRO, ERUR #### [facility] [address] [address] [address] Nathalie Marroquin Color (U) LT. YELLOW Normal YELLOW [facility] Comment on above: Performed By: #### P REGU, UMICRO, ERUR #### [facility] [address] [address] [address] Nathalie ARANAD A micrscopic examination will be performed if indicated. Normal [facility] Comment on above: Performed By: #### P REGU, UMICRO, ERUR #### [facility] [address] [address] [address] Nathalie Marroquin Glucose Ql (U) Negative Normal NEGATIVE [facility] Comment on above: Performed By: #### P REGU, UMICRO, ERUR #### [facility] [address] [address] [address] Nathalie Marroquin Hemoglobin Ql (U) Negative Normal NEGATIVE [facility] Comment on above: Performed By: #### P REGU, UMICRO, ERUR #### [facility] [address] [address] [address] Nathalie Marroquin Ketones Ql (U) Negative Normal NEGATIVE [facility] Comment on above: Performed By: #### P REGU, UMICRO, ERUR #### [facility] [address] [address] [address] Nathalie Marroquin LEUKOCYTES SMALL Abnormal NEGATIVE [facility] Comment on above: Performed By: #### P REGU, UMICRO, ERUR #### [facility] [address] [address] [address] Nathalie Marroquin Nitrite Ql (U) Negative Normal NEGATIVE [facility] Comment on above: Performed By: #### P REGU, UMICRO, ERUR #### [facility] [address] [address] [address] Nathalie Marroquin pH (U) 7.0 [pH] Normal 5-9 [facility] Comment on above: Performed By: #### P REGU, UMICRO, ERUR #### [facility] [address] [address] [address] Nathalie Marroquin SPEC GRAVITY 1.020 Normal 1.005-<=1.025 [facility] Comment on above: Performed By: #### P REGU UMICRO, ERUR #### [facility] [address] [address] [address] Nathalie Marroquin UA PROTEIN Negative Normal NEGATIVE/ TRACE [facility] Comment on above: Performed By: #### P REGJosi UMICRO, ERUR #### [facility] [address] [address] [address] Nathalie Marroquin UR MICRO IND INDICATED Normal [facility] Comment on above: Performed By: #### P REGU, UMICRO, ERUR #### [facility] [address] [address] [address] Nathalie Marroquin Urobilinogen Qn (U) 0.2 {Gianluca'U}/dL Normal 0.2 - 1. 0 [facility] Comment on above: Performed By: #### P REGU UMICRO, ERUR #### [facility] [address] [address] [address] Nathalie Marroquin LACTATE/LACTIC ACIDon 2021 Lactate [Moles/Vol] 1.3 mmol/L Normal 0.4-1.9 [facility] Comment on above: Performed By: #### L ACT ####[facility] [address] [place] [address]Dr. Nathalie Marroquin LIPASEon 02-18-2022 Lipase [Catalytic activity/Vol] 143.0 U/L Normal 73.0-393.0 [facility] Comment on above: Performed By: #### C MP, LIPA #### [facility] [address] [place] [address] Dr. Nathalie Marroquin URon 02-18-2022 , QUAL Negative Normal NEGATIVE [facility] Comment on above: Performed By: #### P REGUMARGARITARO, ERUR #### [facility] [facility] [address] [address] [address] Nathalie Marroquin PROF 14(COMP METB)on 022 Albumin [Mass/Vol] 3.1 g/dL Critically low 3.4-5.0 [facility] Comment on above: Performed By: #### C MP, LIPA #### [facility] [address] [place] [address] Dr. Nathalie Marroquin Albumin/Globulin [Mass ratio] 0.7 {ratio} Normal [facility] Comment on above: Performed By: #### C MP, LIPA #### [facility] [address] [place] [address] Dr. Nathalie Marroquin ALP [Catalytic activity/Vol] 95 U/L Normal 46-116 [facility] Comment on above: Performed By: #### C MP, LIPA #### [facility] [address] [place] [address] Dr. Nathalie Marroquin ALT [Catalytic activity/Vol] 46 U/L Normal 14-59 [facility] Comment on above: Performed By: #### C MP, LIPA #### [facility] [address] [place] [address] Dr. Nathalie Marroquin Anion gap [Moles/Vol] 9.7 mmol/L Normal [facility] Comment on above: Performed By: #### C MP, LIPA #### [facility] [address] [place] [address] Dr. Nathalie Marroquin AST [Catalytic activity/Vol] 22 U/L Normal 15-37 [facility] Comment on above: Performed By: #### C MP, LIPA #### [facility] [address] [address] [address] Nathalie Marroquin Bilirubin [Mass/Vol] 0.3 mg/dL Normal 0.2-1.0 [facility] Comment on above: Performed By: #### C MP, LIPA #### [facility] [address] [place] [address] Dr. Nathalie Marroquin Calcium [Mass/Vol] 8.8 mg/dL Normal 8.5-10.1 [facility] Comment on above: Performed By: #### C MP, LIPA #### [facility] [address] [place] [address] Dr. Nathalie Marroquin Chloride [Moles/Vol] 103 mmol/L Normal 98-107 [facility] Comment on above: Performed By: #### C MP, LIPA #### [facility] [address] [place] [address] Dr. Nathalie Marroquin CO2 [Moles/Vol] 28.4 mmol/L Normal 21.0-32.0 [facility] Comment on above: Performed By: #### C MP, LIPA #### [facility] [address] [place] [address] Dr. Nathalie Marroquin Creatinine [Mass/Vol] 0.88 mg/dL Normal 0.55-1.02 [facility] Comment on above: Performed By: #### C MP, LIPA #### [facility] [address] [place] [address] Dr. Nathalie Marroquin EGFR-AF BULGARIAN >60 Normal >=60 [facility] Comment on above: Performed By: #### C MP, LIPA #### [facility] [address] [place] [address] Dr. Nathalie Marroquin EGFR-NON AF BULGARIAN >60 Normal >=60 [facility] Comment on above: Performed By: #### C MP, LIPA #### [facility] [address] [place] [address] Dr. Nathalie Marroquin Globulin (S) [Mass/Vol] 4.5 g/dL Normal [facility] Comment on above: Performed By: #### C MP, LIPA #### [facility] [address] [address] [address] Nathalie Marroquin Glucose [Mass/Vol] 144 mg/dL Critically high 74-106 [facility] Comment on above: Performed By: #### C MP, LIPA #### [facility] [address] [address] [address] Nathalie Marroquni Potassium [Moles/Vol] 4.1 mmol/L Normal 3.5-5.1 [facility] Comment on above: Performed By: #### C MP, LIPA #### [facility] [address] [address] [address] Nathalie Marroquin Protein [Mass/Vol] 7.6 g/dL Normal 6.4-8.2 [facility] Comment on above: Performed By: #### C MP, LIPA #### [facility] [address] [place] [address] Dr. Nathalie Marroquin Sodium [Moles/Vol] 137 mmol/L Normal 136-145 [facility] Comment on above: Performed By: #### C MP, LIPA #### [facility] [address] [address] [address] Nathalie Marroquin Urea nitrogen [Mass/Vol] 13.0 mg/dL Normal 7.0-18.0 [facility] Comment on above: Performed By: #### C MP, LIPA #### [facility] [address] [address] [address] Nathalie Marroquin Urea nitrogen/Creatinine [Mass ratio] 14.8 mg/mg Normal [facility] Comment on above: Performed By: #### C MP, LIPA #### [facility] [address] [address] [address] Nathalie Marroquin URINE MICROSCOPIC ONLYon BACTERIA TRACE Abnormal NONE SEEN [facility] Comment on above: Performed By: #### P CARMEN TOLEDO, ERUR #### [facility] [address] [address] [address] Nathalie Marroquin Bacteria identified Cx Nom (U) NOT INDICATED Normal [facility] Comment on above: Performed By: #### P REGU, UMICRO, ERUR #### [facility] [address] [address] [address] Nathalie Marroquin CAST NONE SEEN Normal NONE SEEN [facility] Comment on above: Performed By: #### P REGU, UMICRO, ERUR #### [facility] [address] [address] [address] Nathalie Marroquin Crystals LM Nom (Urine sed) NONE SEEN Normal NONE SEEN [facility] Comment on above: Performed By: #### P REGU, UMICRO, ERUR #### [facility] [address] [address] [address] Nathalie Marroquin Epithelial cells LM Ql (Urine sed) FEW Abnormal NONE SEEN /RARE [facility] Comment on above: Performed By: #### P REGU, UMICRO, ERUR #### [facility] [address] [address] [address] Nathalie Marroquin MUCOUS TRACE Abnormal NONE SEEN [facility] Comment on above: Performed By: #### P REGU, UMICRO, ERUR #### [facility] [address] [address] [address] Nathalie Marroquin RBC NONE SEEN Abnormal 0-[address] [facility] Comment on above: Performed By: #### P REGU, UMICRO, ERUR #### [facility] [address] [address] [address] Nathalie Marroquin WBC 0-2 Abnormal NONE SEEN [facility] Comment on above: Performed By: #### P REGU, UMICRO, ERUR #### [facility] [address] [address] [address] Nathalie Marroquin Basic Metabolic Profon 10-30 (cont.) Normal [facility] Comment on above: Result Comment: Aver age GFR for 30-39 years old: 107 mL/min/1.73sq m Chronic Kidney Disease: <60 mL/min/1.73sq m Kidney failure: <15 mL/min/1.73sq m eGFR calculated using average adult body mass. Additional eGFR calculator available at: http://www.Financeit.com/multiple_crcl_2012.htm Performed By: #### C DP, BMP #### [facility] [address] [place], [place] [id number] [employer] Ch[employer]: Cory Merrill MD Anion gap [Moles/Vol] 14 mmol/L Normal 9-17 [facility] Comment on above: Performed By: #### C DP, BMP #### [facility] [address] [place], [place] [id number] [employer]: Cory Merrill MD BUN/CRE Ratio 19 Normal 9-20 [facility] Comment on above: Performed By: #### C DP, BMP #### [facility] [address] [place], [place] [phone] [employer]: Cory Merrill MD Calcium [Mass/Vol] 8.8 mg/dL Normal 8.6-10.4 [facility] Comment on above: Performed By: #### C DP, BMP #### [facility] [address] [place], [place] [id number] [employer]: Cory Merrill MD Chloride [Moles/Vol] 102 mmol/L Normal 98-107 [facility] Comment on above: Performed By: #### C DP, BMP #### [facility] [address] [place], [place] [phone] [employer]: Cory Merrill MD CO2 [Moles/Vol] 24 mmol/L Normal 20-31 [facility] Comment on above: Performed By: #### C DP, BMP #### [facility] [address] [place], [place] [phone] [employer]: Cory Merrill MD Creatinine [Mass/Vol] 0.78 mg/dL Normal 0.50-0.90 [facility] Comment on above: Performed By: #### C DP, BMP #### [facility] [address] [place], [place] [phone] [employer]: Cory Merrill MD GFR, Amer >60 Normal >60 [facility] Comment on above: Performed By: #### C DP, BMP #### [facility] [address] [place] [address] [employer]: Cory Merrill MD GFR,non Amer >60 Normal >60 [facility] Comment on above: Performed By: #### C DP, BMP #### [facility] [address] [place], [place] [phone] [employer]: Cory Merrill MD Glucose [Mass/Vol] 162 mg/dL High 70-99 [facility] Comment on above: Performed By: #### C DP, BMP #### [facility] [address] [place], [place] [phone] [employer]: Cory Merrill MD Potassium [Moles/Vol] 3.8 mmol/L Normal 3.7-5.3 [facility] Comment on above: Performed By: #### C DP, BMP #### [address] [place], [place] 4129483 [employer]: Cory Merrill MD Sodium [Moles/Vol] 140 mmol/L Normal 135-144 [facility] Comment on above: Performed By: #### C DP, BMP #### [facility] [address] [place], [place] [phone] [employer]: Cory Merrill MD Staging: Normal [facility] Comment on above: Result Comment: Stag e 1: Some kidney damage normal GFR Stage 2: Mild kidney damage GFR 60-89 Stage 3: Moderate kidney damage GFR 30-59 Stage 4: Severe kidney damage GFR 15-29 Stage 5: Severe kidney damage GFR <15 ESRD - chronic treatment by dialysis or transplant Performed By: #### C DP, BMP #### [facility] [address] [place] [address] [employer]: Cory Merrill MD Urea nitrogen [Mass/Vol] 15 mg/dL Normal 6-20 [facility] Comment on above: Performed By: #### C DP, BMP #### [address] [place], [place] [address]83 [employer]: Cory Merrill MD CBC with Diffon 10-30-2021 Abs. Basophil <0.03 Normal 0.00-0.20 [facility] Comment on above: Performed By: #### C DP, BMP #### [address] [place], [place] [address] [employer]: Cory Merrill MD Abs.Imm.Granulocyte 0.08 k/uL Normal 0.00-0.30 [facility] Comment on above: Performed By: #### C DP, BMP #### [address] [place], [place] [phone] [employer]: Cory Merrill MD Abs.Neutrophil (Seg) 5.91 k/uL Normal 1.50-8.10 [facility] Comment on above: Performed By: #### C DP, BMP #### [address] [place], [place] [phone] [employer]: Cory Merrill MD Basophils/100 WBC (Bld) 0 % Normal 0-2 [facility] Comment on above: Performed By: #### C DP, BMP #### [address] [place] [address] [employer]: Cory Merrill MD Eosinophils (Bld) [#/Vol] 0.13 10*3/uL Normal 0.00-0.44 [facility] Comment on above: Performed By: #### C DP, BMP #### [address] [place], [place] 1805383 [employer]: Cory Merrill MD Eosinophils/100 WBC (Bld) 2 % Normal 1-4 [facility] Comment on above: Performed By: #### C DP, BMP #### [facility] [address] [place], [place] 4605483 [employer]: Cory Merrill MD Erythrocyte distribution width (RBC) [Ratio] 13.9 % Normal 11.8-14.4 [facility] Comment on above: Performed By: #### C DP, BMP #### [address] [place], [facility] [employer]: Cory Merrill MD Hematocrit (Bld) [Volume fraction] 40.0 % Normal 36.3-47.1 [facility] Comment on above: Performed By: #### C DP, BMP #### [address] [phone] [employer]: Cory Merrill MD Hemoglobin (Bld) [Mass/Vol] 13.1 g/dL Normal 11.9-15.1 [facility] Comment on above: Performed By: #### C DP, BMP #### [address] [place], [place] [phone] [employer]: Cory Merrill MD Immature granulocytes/100 WBC (Bld) 1 % High 0 [facility] Comment on above: Performed By: #### C DP, BMP #### [address] [place], [place] [address]83 [employer]: Cory Merrill MD Lymphocytes (Bld) [#/Vol] 1.57 10*3/uL Normal 1.10-3.70 [facility] Comment on above: Performed By: #### C DP, BMP #### [address] [place], [place] 2475783 [employer]: Cory Merrill MD Lymphocytes/100 WBC (Bld) 19 % Low 24-43 [facility] Comment on above: Performed By: #### C DP, BMP #### [address] [place] [address] [employer]: Cory Merrill MD MCH (RBC) [Entitic mass] 29.6 pg Normal 25.2-33.5 [facility] Comment on above: Performed By: #### C DP, BMP #### [facility] [address] [place] [address] Dr. [place], [place] [phone] [employer]: Cory Merrill MD MCHC (RBC) [Mass/Vol] 32.8 g/dL Normal 28.4-34.8 [facility] Comment on above: Performed By: #### C DP, BMP #### [address] [place] [address] [employer]: Cory Merrill MD MCV (RBC) [Entitic vol] 90.5 fL Normal 82.6-102.9 [facility] Comment on above: Performed By: #### C DP, BMP #### [address] [phone] [employer]: Cory Merrill MD Monocytes (Bld) [#/Vol] 0.65 10*3/uL Normal 0.10-1.20 [facility] Comment on above: Performed By: #### C DP, BMP #### [address] [place], [facility] [employer]: Cory Merrill MD Monocytes/100 WBC (Bld) 8 % Normal 3-12 [facility] Comment on above: Performed By: #### C DP, BMP #### [facility] [address] [place] [address] Dr. [place], [place] [phone] [employer]: Cory Merrill MD Neutrophil (Seg) 71 % High 36-65 [facility] Comment on above: Performed By: #### C DP, BMP #### [facility] [address] [place], [place] [address]83 [employer]: Cory Merrill MD NRBC Automated 0.0 per 100 WBC Normal 0.0 [facility] Comment on above: Performed By: #### C DP, BMP #### [facility] [address] [place], [place] 134[address]83 [employer]: Cory Merrill MD Platelet mean volume (Bld) [Entitic vol] 10.3 fL Normal 8.1-13.5 [facility] Comment on above: Performed By: #### C DP, BMP #### [facility] [address] [place], [place] 160[address] [employer]: Cory Merrill MD Platelets (Bld) [#/Vol] 195 10*3/uL Normal 138-453 [facility] Comment on above: Performed By: #### C DP, BMP #### [address] [place] [address] [employer]: Cory Merrill MD RBC (Bld) [#/Vol] 4.42 10*6/uL Normal 3.95-5.11 [facility] Comment on above: Performed By: #### C DP, BMP #### [address] [place], [place] 25[address]83 [employer]: Cory Merrill MD WBC (Bld) [#/Vol] 8.5 10*3/uL Normal 3.5-11.3 [facility] Comment on above: Performed By: #### C DP, BMP #### [address] [place], [place] [phone] [employer]: Cory Merrill MD Basic Metabolic Panelon 06-0 Anion gap [Moles/Vol] 14 mmol/L 9 - 17 mmol/L [facility] Calcium [Mass/Vol] 8.8 mg/dL 8.6 - 10. 4 mg/dL [facility] Chloride [Moles/Vol] 102 mmol/L 98 - 10 7 mmol/L [facility] CO2 [Moles/Vol] 24 mmol/L 20 - 31 mmol/L [facility] Creatinine [Mass/Vol] 0.78 mg/dL 0.50 - 0.90 mg/dL [facility] GFR >60 >60 mL/min [facility] GFR Non- >60 >60 mL/min [facility] Glucose [Mass/Vol] 162 mg/dL High 70 - 99 mg/dL [facility] Interpretation and review of laboratory results Abnormal [facility] Potassium [Moles/Vol] 3.8 mmol/L 3.7 - 5.3 mmol/L [facility] Sodium [Moles/Vol] 140 mmol/L 135 - 144 mmol/L [facility] Urea nitrogen (BldV) [Mass/Vol] 15 mg/dL 6 - 20 mg/dL [facility] Urea nitrogen/Creatinine (Bld) [Mass ratio] 19 [facility] CBC with Auto Differentialon 10-29-2021 Absolute Eos # 0.13 [facility] Absolute Immature Granulocyte 0.08 [facility] Absolute Lymph # 1.57 [facility] Absolute [place] # 0.65 [facility] Basophils (Bld) [#/Vol] 10*3/uL [facility] Basophils/100 WBC (Bld) 0 % 0 - 2 % [facility] Eosinophils/100 WBC (Bld) 2 % 1 - 4 % [facility] Hematocrit (Bld) [Volume fraction] 40.0 % 36.3 - 47.1 % [facility] Hemoglobin (Bld) [Mass/Vol] 13.1 g/dL 11.9 - 15.1 g/dL [facility] Immature granulocytes/100 WBC (Bld) 1 % High 0 [facility] Interpretation and review of laboratory results Abnormal [facility] Lymphocytes/100 WBC (Bld) 19 % Low 24 - 43 % [facility] MCH (RBC) [Entitic mass] 29.6 pg 25.2 - 33.5 pg [facility] MCHC (RBC) [Mass/Vol] 32.8 g/dL 28.4 - 34.8 g/dL [facility] MCV (RBC) [Entitic vol] 90.5 fL 82.6 - 102.9 fL [facility] Monocytes/100 WBC (Bld) 8 % 3 - 12 % [facility] NRBC Automated 0.0 0.0 per 100 WBC [facility] Platelet distribution width (Bld) [Ratio] 13.9 % 11.8 - 14.4 % [facility] Platelet mean volume (Bld) [Entitic vol] 10.3 fL 8.1 - 13.5 fL [facility] Platelets (Bld) [#/Vol] 195 10*3/uL [facility] RBC (Bld) [#/Vol] 4.42 10*6/uL 3.95 - 5.1 1 m/uL [facility] Segmented neutrophils/100 WBC (Bld) 71 % High 36 - 65 % [facility] Segs Absolute 5.91 [facility] WBC (Bld) [#/Vol] 8.5 10*3/uL [facility] Laboratory - Chemistry and C hemistry - challengeon 10-29-2021 GFR/1.73 sq M.predicted MDRD (S/P/Bld) [Vol rate/Area] [facility] Comment on above: Average GFR for 30-3 9 years old: 107 mL/min/1.73sq m Chronic Kidney Disease: <60 mL/min/1.73sq m Kidney failure: <15 mL/min/1.73sq m eGFR calculated using average adult body mass. Additional eGFR calculator available at: http://www.[employer]it.[employer]/multiple_crcl_2012.htm Stage 1: Some kidney damage normal GFR Stage 2: Mild kidney damage GFR 60-89 Stage 3: Moderate kidney damage GFR 30-59 Stage 4: Severe kidney damage GFR 15-29 Stage 5: Severe kidney damage GFR <15 ESRD - chronic treatment by dialysis or transplant Vital Signs Date Time Vital Sign Value Performing Clinician Facility 01-25-2022 18:55-0400 Body height 165.1 cm Kecia Oliver Other [facility] 01-25-2022 18:55-0400 Body mass index (BMI) [Ratio] 54.91 kg/m2 Kecia Oliver Other [facility] 01-25-2022 18:55-0400 Body temperature 98.1 [degF] Kecia Oliver Other [facility] Other 01-25-2022 18:55-0400 Body weight 149.69 kg Kecia Oliver Other [facility] Other 01-25-2022 18:55-0400 Diastolic blood pressure 79 mm[Hg] Kecia Oliver Other [facility] Other 01-25-2022 18:55-0400 Respiratory rate 18 /min Kecia Oliver Other [facility] Other 01-25-2022 18:55-0400 SaO2% (BldA) [Mass fraction] 99 % Kecia Oliver Other [facility] Other 01-25-2022 18:55-0400 Systolic blood pressure 129 mm[Hg] Kecia Oliver Other [facility] Other 10-29-2021 22:46-0400 Diastolic blood pressure 95 mm[Hg] Fara Blount MD Work Phone: [email or web address] 10-29-2021 22:46-0400 Systolic blood pressure 140 mm[Hg] Fara Blount MD Work Phone: [email or web address] 10-29-2021 22:42-0400 Body temperature 98.01 [degF] Fara Blount MD Work Phone: [email or web address] 10-29-2021 22:42-0400 Heart rate 89 /min Fara Blount MD Work Phone: [facility] 10-29-2021 22:42-0400 Respiratory rate 19 /min Fara Blount MD Work Phone: [facility] 10-29-2021 22:42-0400 SaO2% (BldA) [Mass fraction] 97 % Fara Blount MD Work Phone: [facility] Encounters Encounter Date Encounter Type Care Provider Facility Start: 06-09-2022 End: 06-10-[address] CRESCENCIO QUINTERO Facility:[facility] Start: 02-18-2022 End: 02-19-[address] CRESCENCIO QUINTERO Facility:[facility] Start: 01-25-2022 End: 01-25-2022 ambulatory Kecia Melody Other [facility] Other Start: 01-25-2022 Office outpatient vi sit 15 minutes Kecia Melody [facility] Start: 11-01-2021 End: 11-01-2021 ambulatory Kecia Melody Other [facility] Other Start: 11-01-2021 Office outpatient ne w 10 minutes Kecia Melody [facility] Start: 10-30-2021 End: 10-30-2021 [facility] Start: 10-29-2021 End: 10-30-2021 Emergency department patient visit Fara Blount MD Work Phone: [facility] ED Comment on above: Cellulitis, unspecif ied cellulitis site (Primary Dx) Start: 09-13-2021 End: 09-14-[address] CRESCENCIO QUINTERO Facility:[facility] Procedures Date Procedure Procedure Detail Performing Clinician Start: 10-29-2021 Basic metabolic pane l calcium total Fara Blount MD Work Phone: Plan of Treatment Date Care Activity Detail Author Start: 01-25-2022 Influenza vaccination Flu vacc ine (Season Ended) [facility] Start: 2007 DTaP/Tdap/Td vaccine (1 - Tdap) DTaP/Tdap/Td vaccine (1 - Tdap) [email or web address] Start: 1993 COVID-19 Vaccine (1) COVID-19 Vaccin e (1) [email or web address] Payers Date Payer Category Payer Unknown [id number] [id number] 1988 Unknown [id number] [id number] [id number] 1988 Unknown [id number] [id number] 1988 Unknown [id number] 1959 Unknown [id number] 1959 Unknown [id number] Social History Date Type Detail Facility Start: 10-29-2021 Tobacco smoking status NEIS Never smoked tobacco [employer] Phone: Start: 10-29-2021 Tobacco use and exposure Smokeless tobacco non-user [employer] Phone: Start: 1990 Sex Assigned At Not on file B ON [employer] Phone: Start: 10-19-2021 End: 10-30-2021 Exposure to SARS-CoV-2 (event) Not sure [employer] Phone: Sex Assigned At Sex Assigned At [facility] Other Evaluation note 01-25-2022 Note Date & [...] no improvement in 5 to 7 days. [facility] Other Evaluation note 11-01-2021 Note Date & [...] worsening symptoms or concerns, especially calf pain. [facility] Other Hospital Discharge instructions 10-29-2021 InstructionsAttachments Note Date & Type Note Facility 10-29-2021 Hospital Discharg e instructions Fara Blount MD - 10/30/2021 Take antibiotics as directed until complete. Hmep-ehf-doexdea probiotics as needed and directed. Follow-up with primary care provider in 3 to 5 days if symptoms do not resolve. Return immediately for any worsening pain swelling redness fevers chills or any other acute concerns The following attachments cannot be sent through Care Everywhere.Cellulitis (Serbian)documented in this encounter [employer] Phone: Evaluation note Note Date & Type Note Facility Evaluation note Diagnosis Cellulitis, unspecified cellulitis site- Primary documented in this encounter [facility] [employer] Phone: History general Narrative - Reported Note Date & Type Note Facility History general Narrative - Reported Type Medical History Hypothyroid Medical History Water retention Surgical History C section Hospitalization History during and the n delivery [facility] Other Summary Purpose Family History No Family [...] AUTHOR'S BRITTANI ATION 06/09/2022 [facility] FOR RECORDS PERTAINING TO PATIENTS WHO ARE [...] BE BASED ON THE PRIMARY CLINICAL RECORDS. [email or web address] provides no warranty or guarantee of the accuracy or completeness of information in this document.
[2024-08-14 12:18] LABS: Estimated Average Glucose 220 mg/dL; Glycohemoglobin A1C 9.3 % (4.5-6.2)
[2024-08-14 12:36] LABS: Basophils Percent Auto 0.5 % (0.2-2.0); Eosinophils Absolute Auto 0.1 10^3/uL (0.0-0.7); Eosinophils Percent Auto 2.6 % (0.9-7.0); Hematocrit 38.4 % (36.0-48.0); Hemoglobin 13.1 g/dL (12.0-16.0); Immature Granulocytes Abs Auto 0.02 10^3/uL (0.00-0.03); Immature Granulocytes Pct Auto 0.5 % (0.0-0.5); Lymphocytes Absolute Auto 1.6 10^3/uL (1.2-3.8); Lymphocytes Percent Auto 39.2 % (20.5-60.0); Mean Corpuscular HGB Conc 34.1 g/dL (29.9-35.2); Mean Corpuscular Hemoglobin 30.5 pg (26.7-34.0); Mean Corpuscular Volume 89.5 fL (81.0-99.0); Mean Platelet Volume 9.7 fL (9.5-13.5); Monocytes Absolute Auto 0.3 10^3/uL (0.3-0.8); Neutrophils Absolute Auto 2.1 10^3/uL (1.4-6.5); Neutrophils Percent Auto 50.2 % (43.0-75.0); Platelet Count 309 10^3/uL (150-450); Red Blood Count 4.29 10^6/uL (4.20-5.40); Red Cell Distribution Width 13.7 % (11.0-15.0); White Blood Count 4.2 10^3/uL (4.0-11.0)
[2024-08-14 12:52] LABS: Alanine Aminotransferase 60 U/L (14-59); Albumin Globulin Ratio 0.7; Albumin Level 3.1 g/dL (3.4-5.0); Alkaline Phosphatase 97 U/L (46-116); Anion Gap 8.5; Aspartate Amino Transferase 34 U/L (15-37); BUN Creatinine Ratio 23.8; Bilirubin Total 0.5 mg/dL (0.2-1.0); Calcium 8.8 mg/dL (8.5-10.1); Chloride 103 mmol/L (98-107); Chol HDL Ratio 3.6; Cholesterol 170 mg/dL (<=200); Estimated GFR (African America >60 (>=60 mL/min/1.73m^2); Estimated GFR (Non-African Ame >60 (>=60 mL/min/1.73m^2); Globulin 4.5 g/dL; Glucose 226 mg/dL (74-106); HDL Cholesterol 47 mg/dL (40-60); LDL Cholesterol Calculated 96.4 mg/dL; Potassium 4.5 mmol/L (3.5-5.1); Sodium 138 mmol/L (136-145); TSH W/ REFLEX FT4 5.264 uIU/mL (0.358-3.740); Total Protein 7.6 g/dL (6.4-8.2); Triglycerides 133 mg/dL (<=150); VLDL CHOLESTEROL 26.6 mg/dL
[2024-08-14 13:10] LABS: Free T4 0.74 ng/dL (0.76-1.46)
== END 2024-08-14 11:32 | disposition home or self-care (01) ==
LOC: LAB 11:32
DX: Z00.00 Encounter for general adult medical examination without abnormal findings (principal); Z13.1 Encounter for screening for diabetes mellitus
CPT/HCPCS: 36415; 80053; 80061; 83036; 84439; 84443; 85025